=== PATIENT | male | born 1935 | race Caucasian/White ===

== ENCOUNTER 2017-06-11 11:46 | Emergency (ER) | payer OTHER, MEDICARE ==
[~2017-06-11] VITALS: Ht 185.4 cm; Wt 123.4 kg
[~2017-06-11 11:46] MED LIST: ATROVENT15 ML NASAL; BISOPROLOL FUMAR5 M1 PO; CIPRO500 MG PO; COUMADIN 5 MG TA5 M1 PO; HYDRALAZINE 2525 MG PO; KLOR-CON 1010 MEQ PO; LIPITOR10 MG PO; LOVASTAT40 PO; LOVASTATIN 20 M20 MG PO; MAPAP500 M1 PO; ROBITUSSIN DM PO; ZIAC 5-6.25 MG1 EACH PO
[2017-06-11] MEDS ORDERED: FLOMAX0.4 MG PO (12:18)
[2017-06-11] MEDS ORDERED: CIPRO250 M2 PO (12:18)
[2017-06-11 12:32] LABS: HEMATOCRIT 48.2 % (42.0-52.0); HEMOGLOBIN 16.1 gm/dL (14.0-18.0); MCH 31.1 pg (26.0-34.0); MCHC 33.4 g/dL (28.0-37.0); MCV 92.9 fL (80.0-100.0); PLATELET COUNT 146 thou/uL (150-400); RBC 5.19 mil/uL (4.50-6.00); RDW 13.6 % (10.5-14.5); WBC 13.7 thou/uL (4.0-11.0)
[2017-06-11 12:40] LABS: CALCIUM 8.6 mg/dL (8.5-10.1); CREATININE 1.2 mg/dL (0.7-1.3); MANUAL DIFF YES
[2017-06-11 12:46] LABS: ALBUMIN 3.3 g/dL (3.4-5.0); DIRECT BILIRUBIN 0.2 mg/dL (<0.1-0.3); TOTAL BILIRUBIN 1.4 mg/dL (<0.1-1.0); TOTAL PROTEIN 6.3 g/dL (6.4-8.2)
[2017-06-11 13:17] LABS: URINE BILIRUBIN NEGATIVE (Negative); URINE BLOOD 2+ (Negative); URINE COLOR YELLOW; URINE GLUCOSE-RANDOM* NEGATIVE (Negative); URINE KETONES NEGATIVE (Negative); URINE NITRITE NEGATIVE (Negative); URINE PROTEIN (DIPSTICK) NEGATIVE (Negative)
[2017-06-11 13:20] LABS: SQUAMOUS None Seen /LPF (0-3); URINE RBC 0-2 Rare /HPF (0-2)
[2017-06-11 13:21] LABS: BACTERIA 1-9 Few /HPF (None Seen); CASTS None Seen /LPF (None Seen); CRYSTALS None Seen /LPF (None Seen); URINE WBC 0-5 Rare /HPF (0-5)
[2017-06-11 13:48] LABS: ABSOLUTE NEUTROPHILS 11.4 thou/uL (1.4-8.2); TOTAL CELL COUNT 100
[2017-06-11 15:00] VITALS: BP 109/41
== END 2017-06-11 15:00 | disposition home or self-care (01) ==
LOC: ER 11:46
PROVIDERS: Nurse Practitioner
DX: N39.0 Urinary tract infection, site not specified (principal); Z87.442 Personal history of urinary calculi; Z86.718 Personal history of other venous thrombosis and embolism; Z90.49 Acquired absence of other specified parts of digestive tract; Z88.7 Allergy status to serum and vaccine; Z88.5 Allergy status to narcotic agent; Z87.891 Personal history of nicotine dependence

== ENCOUNTER 2018-10-15 22:09 | Inpatient (IN) | payer OTHER, MEDICARE ==
[~2018-10-15] VITALS: Ht 182.9 cm; Wt 118.1 kg
--- NOTE | ~2018-10-15 | D ---
[facility] [place] [address] DISCHARGE SUMMARY Name: ABIOLA MARIN Room #: 225-P [facility] IN M.R.#: [id number] Admission: 10/16/18 Attend Phys: Scarlet Beasley Discharge: 10/19/18 Date of : 35 Report #: [id number] THIS REPORT FOR: //name// CC: Benitez Pace DATE OF SERVICE: 10/19/2018 FINAL DIAGNOSES: 1. Urinary tract infection due to Pseudomonas. 2. Urinary retention. 3. Hypertension. 4. Osteoarthritis of the knees. 5. Debility. HOSPITAL COURSE: The patient was admitted with weakness and elevated white count and urinalysis consistent with infection. Empiric Rocephin was administered and clinically he improved. He was still very weak and requiring physical therapy. Other medications were continued and INR was monitored. A referral was made for rehabilitation. Culture grew Pseudomonas, which was fairly pansensitive. He had urinary retention as well and is requiring intermittent catheterization at times. Additional medication was added. PHYSICAL EXAMINATION: GENERAL: On the day of discharge, he is resting in bed. VITAL SIGNS: Temperature 36.6, pulse 58, respirations 16, blood pressure 119/63 and O2 sat 98% on room air. LUNGS: Clear. HEART: Regular. ABDOMEN: Soft, normoactive bowel sounds. EXTREMITIES: No edema. LABORATORY DATA: INR was 2.5. DISPOSITION: He is transferred to [facility] with regular diet and activity as tolerated. PT, OT. I will follow his stay there. Coumadin monitoring. Continue Cipro for the UTI and other home medications. He will see Dr. Costa, Neurology, as an outpatient. By: 0813 1854 Nadir Guzman MD /nt
[~2018-10-15 22:09] MED LIST changes: +CIPRO250 M2 PO; +FLOMAX0.4 MG PO
[2018-10-15 22:13] VITALS: BP 126/66
[2018-10-15 22:36] LABS: URINE BILIRUBIN NEGATIVE (Negative); URINE BLOOD 3+ (Negative); URINE CLARITY CLOUDY; URINE COLOR YELLOW; URINE GLUCOSE-RANDOM* NEGATIVE (Negative); URINE KETONES NEGATIVE (Negative); URINE PROTEIN (DIPSTICK) 2+ (Negative); URINE SPECIFIC GRAVITY >= 1.030 (1.005-1.035); URINE UROBILINOGEN 0.2 E.U./dl (0.2-1.0)
[2018-10-15 22:37] LABS: URINE LEUKOCYTES-REFLEX 2+ (Negative); URINE NITRITE-REFLEX POSITIVE (Negative)
[2018-10-15 22:42] LABS: BACTERIA-REFLEX >30 Many /HPF (None Seen); CASTS None Seen /LPF (None Seen); CRYSTALS None Seen /LPF (None Seen); MUCUS None Seen strn/LPF (None Seen); SQUAMOUS None Seen /LPF (0-3); TRANSITIONAL EPITHEL CELL 4-10 Moderate /LPF (None Seen); URINE RBC >20 Many /HPF (0-2); URINE WBC-REFLEX >25 Many /HPF (0-5)
[2018-10-16 00:03] LABS: ABSOLUTE NEUTROPHILS 14.3 thou/uL (1.4-8.2); BASOPHILS 0.1 % (0.0-2.0); EOSINOPHILS 0.4 % (0.0-3.0); HEMATOCRIT 49.2 % (42.0-52.0); HEMOGLOBIN 16.8 gm/dL (14.0-18.0); LYMPHOCYTES 5.4 % (24.0-44.0); MCH 32.1 pg (26.0-34.0); MCHC 34.1 g/dL (28.0-37.0); MCV 94.3 fL (80.0-100.0); MONOCYTES 7.9 % (1.0-8.0); PLATELET COUNT 164 thou/uL (150-400); POLYS 86.2 % (36.0-66.0); RBC 5.21 mil/uL (4.50-6.00); RDW 14.1 % (10.5-14.5); WBC 16.6 thou/uL (4.0-11.0)
[2018-10-16 00:13] LABS: ANION GAP 9 mmol/L (7-16); BUN 19 mg/dL (7-18); CALCIUM 8.4 mg/dL (8.5-10.1); CHLORIDE 101 mmol/L (98-107); CO2 26 mmol/L (21-32); CREATININE 1.2 mg/dL (0.7-1.3); GLUCOSE 156 mg/dL (74-106); POTASSIUM 4.2 mmol/L (3.5-5.1); SODIUM 136 mmol/L (136-145)
[2018-10-16 00:21] LABS: ALBUMIN 3.5 g/dL (3.4-5.0); SGOT 20 U/L (15-37); SGPT 20 U/L (30-65); TOTAL BILIRUBIN 1.2 mg/dL (<0.1-1.0); TOTAL PROTEIN 6.3 g/dL (6.4-8.2); TROPONIN-I <0.06 ng/mL (<0.06)
[2018-10-16 03:30] VITALS: BP 121/58
[2018-10-16 04:30] VITALS: BP 140/72
[2018-10-16 07:10] VITALS: BP 153/45
[2018-10-16 07:18] VITALS: BP 116/70
--- NOTE | 2018-10-16 07:50 | NUR ---
PATIENT ARRIVED FROM ED AT 0330 WITH A UTI AND CONFUSION. ASSESSMENTS CHARTED. PATIENT INCONTINENT OF BLADDER. URINATED TWICE DURING SHIFT. BURNING. PLAN OF CARE TO INCLUDE ANTIBIOTICS.
--- NOTE | 2018-10-16 08:45 | EKG ---
[address] [address] ELECTROCARDIOGRAM REPORT Name: MARINABIOLA Room #: 202-P ADM IN M.R.#: [id number] Admission: 10/16/18 Attend Phys: Scarlet Beasley Discharge: Date of : 35 Report #: [id number] THIS REPORT FOR: //name// [facility] ED Test Date: 2018-10-15 Test Time: 22:50:09 Pat Name: ABIOLA MARIN Department: Room: 202 Gender: M Acid Etch Operator: RICHY : 1935 Requested By: Roxanna Fong Order Number: [id number] MD: Maurice Suazo Measurements Intervals Sheldon Rate: 91 P: NE: QRS: -75 QRSD: 172 T: -5 QT: 402 QTc: 495 Interpretive Statements Atrial fibrillation Right bundle branch block Inferior infarct, old Compared to ECG 09/10/2016 07:16:49 Myocardial infarct finding now present Atrial premature complex(es) no longer present Electronically Signed On 10-16-2018 8:45:29 TRANSPORTATION [employer] by Maurice Suazo [email or web address] <ELECTRONICALLY SIGNED> By: Maurice Suazo MD 10/16/18 0845 Maurice Suazo MD /EPI
[2018-10-16 10:02] LABS: INR 1.5; PROTIME 15.1 Seconds (9.3-11.4)
--- NOTE | 2018-10-16 13:28 | NUR ---
met with patient, and dtr at bedside. Patient admits with UTI family reports at times he becomes forgetfull with UTI. Dtr reports it is hard on her father and last UTI was in summer at [facility] he went to rehab at [facility]. He is continuing to do outpatient therapy at [facility]. He has rec HH in past and family reports he did not like prefers out patient at [facility]. Therapy has been ordered. Patient uses a walker in home he says 50/50 of time. He has a transfer chair for in community, walker, wc, and rolator walker. Ramp to home. Resides with in home with all needs on one level. He has walk in shower with grab bars. [facility] following for dc planning.
[2018-10-16 16:24] VITALS: BP 100/46
--- NOTE | 2018-10-16 19:24 | NUR ---
PT A&OX4, TRANSFERS WITH [employer] [facility], HAS URGENCY STRESS INCONT., WEARS A BREIF, IV INTACT IN R WRIST. CALL LIGHT W/I REACH, PT ORIENTED TO ROOM.
--- NOTE | 2018-10-16 20:16 | NUR ---
PATIENT ALERT AND ORIENTED BUT SOMETIMES BECOMES AGITATED. PATIENT SPOUSE (DAWSON) INDICATES PATIENT NORMALLY GETS AGITATED. PATIENT HAS PAIN WITH URINATION AND SOMETIMES URINATES IN BED BECAUSE HE CAN NOT GET URINAL QUICK ENOUGH. PATIENT IS AWARE OF MEDICATIONS HE TAKES AND INTERVENTIONS NECESSARY FOR HIS CARE. HE REQUESTED HIS SCD'S BE PLACED ON HIS LOWER EXTREMITIES. PATIENT FAMILY AT BEDSIDE THIS AFTERNOON. PATIENT TRAN[facility]ED TO [facility] THIS EVENING AND FAMILY AWARE. WILL CONTINUE TO FOLLOW PATIENT.
--- NOTE | 2018-10-17 05:46 | NUR ---
PATIENT ALERT AND ORIENTED X4 WITH PERIODS OF CONFUSION. NEEDS HELP USING A URINAL. WEARS BRIEFS. STATES HE CANNOT STAND. ON RA. IV IN RW. DENIES PAIN. SLEPT OFF AND ON DURING NIGHT.
[2018-10-17 07:26] LABS: HEMOGLOBIN 15.5 gm/dL (14.0-18.0); MCH 31.3 pg (26.0-34.0); MCV 94.9 fL (80.0-100.0); RBC 4.95 mil/uL (4.50-6.00); RDW 13.8 % (10.5-14.5); WBC 9.5 thou/uL (4.0-11.0)
[2018-10-17 07:41] LABS: INR 1.5; PROTIME 16.1 Seconds (9.3-11.4)
[2018-10-17 07:47] LABS: CALCIUM 8.4 mg/dL (8.5-10.1); CREATININE 1.1 mg/dL (0.7-1.3); POTASSIUM 3.9 mmol/L (3.5-5.1)
[2018-10-17 08:51] VITALS: BP 137/82
--- NOTE | 2018-10-17 10:48 | H ---
[facility] [place] [address] HISTORY AND PHYSICAL Name: ABIOLA MARIN Room #: 225-P ADM IN M.R.#: [id number] Admission: 10/16/18 Attend Phys: Scarlet Beasley Discharge: Date of : 35 Report #: [id number] THIS REPORT FOR: //name// CC: Benitez Pace DATE OF SERVICE: 10/16/2018 CHIEF COMPLAINT: Weakness. HISTORY OF PRESENT ILLNESS: The patient is an 83-year-old gentleman came to the Emergency Room last night with general weakness. His stated that he was having difficulty voiding last night and began experiencing pain and burning with urination. He said he felt like it was not completely emptying his bladder. He also became very confused and weak. She said these are very similar symptoms to when he has been diagnosed and treated for urinary infections in the past requiring hospitalization. PAST MEDICAL HISTORY: Chronic DVT, atrial fibrillation, lumbar spinal stenosis with myelopathy. His general lower extremity weakness is almost wheelchair bound. PAST SURGICAL HISTORY: Unknown. FAMILY HISTORY: Noncontributory. SOCIAL HISTORY: Lives at home with his . No chronic alcohol or tobacco use. ALLERGIES: MORPHINE, TETANUS. MEDICATIONS: Flomax 0.8 mg, Mevacor 40 mg, Coumadin 5 mg, Ziac 5/6.25 mg daily. He apparently had finished a course of Cipro and then was on an oral antibiotic per his 's report. REVIEW OF SYSTEMS: Other than urinary burning. Denies headache, chest pain, shortness of breath, abdominal pain, dysuria, syncope or fall. PHYSICAL EXAMINATION: VITAL SIGNS: Temperature 37, pulse 50, respirations 18, blood pressure 116/70, O2 sat 98% on room air. GENERAL: He is awake and alert, in no distress. LUNGS: Clear. HEART: Regular. ABDOMEN: Obese, soft, normoactive bowel sounds. EXTREMITIES: No edema. NEUROLOGIC: Motor strength 3/5 throughout. [facility] [place] [address] HISTORY AND PHYSICAL Name: ABIOLA MARIN Room #: [address] [place] [address] IN ..#: [id number] Admission: 10/16/18 Attend Phys: Scarlet Beasley Discharge: Date of : 35 Report #: [id number] LABORATORY DATA: His white count was 16. INR is 1.5. Chemistry is unremarkable. Urinalysis positive blood, nitrite, leukocyte, red cells, white cells, bacteria, and cultures pending. ASSESSMENT: 1. Urinary tract infection. 2. Leukocytosis due to the above. 3. Chronic deep venous thrombosis. 4. Chronic anticoagulation. 5. Atrial fibrillation. PLAN: Continue IV antibiotics pending the culture and his other home medications including Coumadin, a onetime dose of Lovenox today for DVT prophylaxis and followup INR. A renal ultrasound and bladder scanning will be obtained to rule out retention. <ELECTRONICALLY SIGNED> By: Nadir Guzman MD 10/17/18 1048 [id number] Nadir Guzman MD /vitaliy
--- NOTE | 2018-10-17 15:06 | NUR ---
SW reviewed chart and spoke with nursing. Pt was transferred to [facility]. Awaiting input from therapy for recommendations for discharge. [facility]O is following to assist as needed with discharge planning.
--- NOTE | 2018-10-17 15:09 | NUR ---
ASSUMED CARE AT 0700, SHIFT ASSESSMENT DONE, MEDS GIVEN. WAS NOT ABLE TO URINATE THIS AM. WAS STRAIGT CATHETERIZIED, 300 ML OF URINE WAS RETRIVED. DR OJEDA AWARE, STARTED SOME MORE MEDICATIONS. ATE LUNCH. RESTING IN BED THIS AFTERNOON.
[2018-10-17 20:04] VITALS: BP 114/57
--- NOTE | 2018-10-18 06:08 | NUR ---
PATIENT ALERT AND ORIENTED X4. IV IN RFA. NEEDS HELP WITH URINAL BUT HAS TRIED TO USE ON OWN. INC AT TIMES. DENIES PAIN. SLEPT MOST OF NIGHT.
[2018-10-18 07:30] VITALS: BP 110/56
[2018-10-18 07:45] LABS: INR 1.8; PROTIME 18.7 Seconds (9.3-11.4)
[2018-10-18 07:48] LABS: CALCIUM 8.2 mg/dL (8.5-10.1); CREATININE 1.1 mg/dL (0.7-1.3); POTASSIUM 3.9 mmol/L (3.5-5.1)
--- NOTE | 2018-10-18 11:54 | NUR ---
SW reviewed chart and spoke with nursing and attending physician. Pt is progressing towards goals for discharge. Request for referral to be sent to [facility] for review. Pt will be ready for discharge tomorrow. Clinical info faxed to [facility] for review. Awaiting eval at this time. SANDRO is following to assist as needed with discharge planning.
--- NOTE | 2018-10-18 13:24 | NUR ---
PATIENT CARE WAS ASSUMED AT 0715.PATIENT IS ALERT AND ORIENTED X4 PATIENT HAS SOME FORGETFULNESS.PATIENT HAS NO COMPLAINS OF PAIN AT THIS TIME.IV IS INTACT AND SALINE LOCKED.PATIENT HASN'T BEEN WORKING WITH PT/OT TO GET UP.PATIENT WORKED WITH PT ONLY FOR THE FIRST TIME TO GET UP IN THE CHAIR AND USE THE BSC. PATIENT STATED THAT HE HAS BEEN TO THE HOSPITAL SEVERAL TIME FOR UTI, AND DOESN'T WANT TO BE MESSED WITH.PT EDUCATED PATIENT ON HOW IMPORTANT PT/OT IS FOR HIM, SO HE CAN BE APPROVED FOR REHAB.PT IS ABLE TO USE THE URINAL WITH SOME HELP.PT HAS BRIEF IN PLACE FOR SMALL INCONTINCE.CALL LIGHT,PHONE, AND PERSONAL BELONGINGS ARE WITHIN REACH.WILL CONTINUE TO MONITOR PATIENT.
--- NOTE | 2018-10-18 14:19 | NUR ---
DISCHARGE PLANNING. REFERRAL FAXED TO [facility] MECHANICAL SYSTEM TECHNICIAN FOR PATIENTS DISCHARGE PLACEMENT NEEDS. CALL PLACED TO [facility] TO NOTIFY. CALL RECEIVED FROM [facility] ADMISSIONS LIAISON. ACCEPTING OF PATIENT AT DISCHARGE. ONCE DISCHARGE ORDERS ARE OBTAINED PLEASE CONTACT JERMAN AT [phone] TO FACILITATE DISCHARGE AND TRANSPORTATION. PLEASE FAX ORDERS TO . UNIT CM/SW AWARE.
[2018-10-18 19:34] VITALS: BP 106/62
--- NOTE | 2018-10-19 05:32 | NUR ---
ASSUMED CARE OF PATIENT AT 1899. ASSESSMENT COMPLETED AT 2044 AND IS DOCUMENTED. PT ASSISTED WITH USE OF URINAL X6 THROUGHOUT THE NIGHT, UNABLE TO UTILIZE URINAL INDEPENDENTLY WITHOUT SPILLING. PT ABLE TO STAND USING WALKER AND MINIMAL ASSISTANCE. NPC NOTED. LUNG SOUNDS CTA. PT STATES HE HAS CONSTANT NUMBNESS IN LOWER 1/2 OF BLE WITH RIGHT>LEFT. PIV IN RIGHT HAND PATENT AND SALINE LOCKED. PT ABLE TO VERBALIZED NEEDS APPROPRIATELY. PT SLEPT INTERMITTENTLY THROUGH THE NIGHT. NO C/O PAIN THIS SHIFT. PT CURRENTLY RESTING IN BED IN NO ACUTE DISTRESS WITH CALL LIGHT IN REACH. BED LOCKED AND IN LOWEST POSITION. WCTM.
[2018-10-19 07:38] VITALS: BP 119/63
[2018-10-19] MEDS ORDERED: URECHOLINE 25 M25 M1 PO (08:08)
[2018-10-19 08:09] LABS: INR 2.5; PROTIME 25.8 Seconds (9.3-11.4)
[2018-10-19] MEDS ORDERED: FINASTERIDE5 MG PO (08:09)
[2018-10-19] MEDS ORDERED: CIPRO500 MG PO (08:09)
--- NOTE | 2018-10-19 13:58 | NUR ---
ASSUMED CARE OF PATIENT AT 0715, PATIENT ALERT AND ORIENTED X 4. PATIENT UP WITH ASSIST X 1, WITH WALKER. PATIENT DENIES PAIN THIS AM. PAIENT HAS RIGHT HAND IV, FLUSHED WITH NS AND REMAINS PATENT. PATIENT HAD 2 STOOLS PRIOR TO DISCHARGE. PATIENT WILL DISCHARGE TO [facility], REPORT GIVEN TO MARGO/RANI. ALL PERSONAL BELONGINGS AND ALL DISCHARGE PAPERWORK SENT WITH PATIENT. PRESENT ON DISCHARGE, [facility] PROVIDED TRANSPORT.
== END 2018-10-19 14:14 | DRG 689 ==
LOC: ER 22:09 → 2N 10-16 00:50 → EROBS 10-16 00:50 → 2N 10-16 03:30 → SICU 10-16 18:53
PROVIDERS: Internal Medicine Geriatric Medicine; Student in an Organized Health Care Education/Training Program; ADMIT Internal Medicine
DX: N39.0 Urinary tract infection, site not specified (principal); G92 Toxic encephalopathy; I82.509 Chronic embolism and thrombosis of unspecified deep veins of unspecified lower extremity; R65.10 Systemic inflammatory response syndrome (SIRS) of non-infectious origin without acute organ dysfunction; B96.5 Pseudomonas (aeruginosa) (mallei) (pseudomallei) as the cause of diseases classified elsewhere; I48.91 Unspecified atrial fibrillation; I10 Essential (primary) hypertension; M17.0 Bilateral primary osteoarthritis of knee; Z99.3 Dependence on wheelchair; Z88.6 Allergy status to analgesic agent; Z88.7 Allergy status to serum and vaccine; Z79.01 Long term (current) use of anticoagulants; Z87.440 Personal history of urinary (tract) infections; Z87.442 Personal history of urinary calculi; Z90.49 Acquired absence of other specified parts of digestive tract; Z79.899 Other long term (current) drug therapy
CPT/HCPCS: 15002

== ENCOUNTER 2019-05-27 14:05 | Inpatient (IN) | payer OTHER, MEDICARE ==
[~2019-05-27] VITALS: Ht 182.9 cm; Wt 125.2 kg
[2019-05-27 14:05] VITALS: BP 114/58
[~2019-05-27 14:05] MED LIST changes: +FINASTERIDE5 MG PO; +URECHOLINE 25 M25 M1 PO
[2019-05-27 14:30] LABS: URINE BILIRUBIN NEGATIVE (Negative); URINE BLOOD 2+ (Negative); URINE CLARITY CLOUDY; URINE COLOR STRAW; URINE GLUCOSE-RANDOM* NEGATIVE (Negative); URINE KETONES NEGATIVE (Negative); URINE LEUKOCYTES-REFLEX 3+ (Negative); URINE NITRITE-REFLEX POSITIVE (Negative); URINE PROTEIN (DIPSTICK) 1+ (Negative); URINE SPECIFIC GRAVITY 1.025 (1.005-1.035); URINE UROBILINOGEN 0.2 E.U./dl (0.2-1.0)
[2019-05-27 14:33] LABS: ABSOLUTE NEUTROPHILS 7.5 thou/uL (1.4-8.2); BASOPHILS 0.5 % (0.0-2.0); EOSINOPHILS 0.7 % (0.0-3.0); HEMATOCRIT 45.2 % (42.0-52.0); HEMOGLOBIN 15.4 gm/dL (14.0-18.0); LYMPHOCYTES 14.1 % (24.0-44.0); MCHC 34.1 g/dL (28.0-37.0); MONOCYTES 9.5 % (1.0-8.0); PLATELET COUNT 195 thou/uL (150-400); POLYS 75.2 % (36.0-66.0); RBC 4.81 mil/uL (4.50-6.00); RDW 13.8 % (10.5-14.5)
[2019-05-27 14:34] LABS: CASTS None Seen /LPF (None Seen); CRYSTALS None Seen /LPF (None Seen); SQUAMOUS None Seen /LPF (0-3); URINE RBC 3-10 Few /HPF (0-2); URINE WBC-REFLEX >25 Many /HPF (0-5)
[2019-05-27 14:39] LABS: ANION GAP 4 mmol/L (7-16); BUN 19 mg/dL (7-18); CALCIUM 8.7 mg/dL (8.5-10.1); CHLORIDE 102 mmol/L (98-107); CO2 30 mmol/L (21-32); CREATININE 1.4 mg/dL (0.7-1.3); GLUCOSE 203 mg/dL (74-106); POTASSIUM 3.9 mmol/L (3.5-5.1); SODIUM 136 mmol/L (136-145)
[2019-05-27 14:45] LABS: MAGNESIUM 1.6 mg/dL (1.8-2.4); TROPONIN-I <0.06 ng/mL (<0.06)
[2019-05-27] MEDS ORDERED: HIPREX1 GM PO (15:10)
[2019-05-27 16:13] VITALS: BP 94/55
[2019-05-27 16:24] VITALS: BP 105/51
[2019-05-27 18:14] VITALS: BP 146/68
--- NOTE | 2019-05-27 20:19 | NUR ---
Admitted on the floor at 1740, transferred to bed safely. A+O. On room air. Due medications given as prescribed, able to swallow meds w/o difficulty. On AO2, pt uses walker at home. Admission care rendered. Pt able to finish dinner, no nausea, no vomiting and no abdominal pain noted afterwards. Assisted in ADLs. Children came with patient from ED but left right away after pt has been transferred to room, pt refused to sign forms and said to have his sign on his behalf. Falls risk- falls bundle in place. With SL at L AC- patent. With knee brace noted. With bilateral leg swelling noted, not weeping, to keep elevated. Vital signs stable, no complains of pain, no chest pain or heaviness on the chest noted.
--- NOTE | 2019-05-28 00:40 | NUR ---
ASSUMED CARE OF PT AT 1900HRS. PT IS ALERT BUT ONLY ORIENTED TO SELF AND PLACE. FALL PRECAUTION IN PLACE. PT ASSISTED WITH URINAL USE. PT WAS COMFORTABLE AND SLEPT PART OF THE SHIFT. NO S/S OF ACUTE DISTRESS. WILL CONTINUE TO MONITOR.
[2019-05-28 03:59] VITALS: BP 114/46
[2019-05-28 06:04] LABS: HEMATOCRIT 42.4 % (42.0-52.0); HEMOGLOBIN 14.5 gm/dL (14.0-18.0); MCH 32.1 pg (26.0-34.0); MCHC 34.1 g/dL (28.0-37.0); MCV 94.2 fL (80.0-100.0); RBC 4.5 mil/uL (4.50-6.00); RDW 13.8 % (10.5-14.5); WBC 8.1 thou/uL (4.0-11.0)
[2019-05-28 06:07] LABS: INR 1.3; PROTIME 13.9 Seconds (9.3-11.4)
[2019-05-28 06:20] LABS: CALCIUM 8.3 mg/dL (8.5-10.1); CREATININE 1.2 mg/dL (0.7-1.3); POTASSIUM 3.8 mmol/L (3.5-5.1)
[2019-05-28 07:11] VITALS: BP 100/48
--- NOTE | 2019-05-28 07:48 | EKG ---
[address] [place] [address] ELECTROCARDIOGRAM REPORT Name: ABIOLA MARIN EDMARIANNE Room #: 452-P ADM IN M.R.#: [id number] Admission: 05/27/19 Attend Phys: Nadir Guzman MD Discharge: Date of : 35 Report #: [id number] THIS REPORT FOR: //name// [facility] ED Test Date: 2019-05-27 Test Time: 14:03:37 Pat Name: ABIOLA MARIN Department: Room: 452 Gender: M Soda Clerk: RODRICK : 1935 Requested By: Lamont Rogers Order Number: [id number] MD: Sandor Le Measurements Intervals Mittie Rate: 64 P: -30 PA: 65 QRS: -33 QRSD: 153 T: -28 QT: 391 QTc: 404 Interpretive Statements Incomplete tracing Atrial fibrillation Right bundle-branch block Compared to ECG 10/15/2018 22:50:09 No significant changes. Recommend tracing with all leads in place Electronically Signed On 05-28-2019 7:48:01 CDT by Sandor Le [email or web address] <ELECTRONICALLY SIGNED> By: Sandor Le MD, [facility] 05/28/19 0748 1403 1403 Sandor Le MD, [facility] /EPI
--- NOTE | 2019-05-28 09:08 | H ---
[facility] [place] [address] HISTORY AND PHYSICAL Name: ABIOLA MARIN Room #: 452-P ADM IN M.R.#: [id number] Admission: 05/27/19 Attend Phys: Nadir Guzman MD Discharge: Date of : 35 Report #: [id number] THIS REPORT FOR: //name// CC: Benitez Guzman DATE OF SERVICE: 05/27/2019 CHIEF COMPLAINT: Weakness. HISTORY OF PRESENT ILLNESS: The patient is an 83-year-old gentleman who came to the Emergency Room today with his family with complaints of weakness. His said he has become confused overnight and today and he has had some difficulty speaking. She told the ER staff that in the past, the signs and symptoms have represented urinary tract infections. He has had a series of repeated infections with hospitalizations over the last year. He follows with urologist as an outpatient. He has had trouble with retention in the past as well. PAST MEDICAL HISTORY: Kidney stones, DVT, IVC filter with remote history of clots in the past. He is on chronic anticoagulation with Coumadin. Hypertension, chronic low back pain with lumbar stenosis. PAST SURGICAL HISTORY: He has had a cervical diskectomy, appendectomy. FAMILY HISTORY: Noncontributory. SOCIAL HISTORY: He lives with his and family. No chronic alcohol or tobacco use. ALLERGIES: TETANUS and MORPHINE. MEDICATIONS: Hiprex, lovastatin, warfarin, Ziac, finasteride, bethanechol. REVIEW OF SYSTEMS: He denies nausea, vomiting, fever, chills, productive cough, shortness of breath, chest pain, dysuria, syncope. OBJECTIVE: VITAL SIGNS: Temperature 36.8, pulse 55, respirations 17, blood pressure 114/58, O2 sat 92% on room air. GENERAL: He is awake and alert, in no distress. HEAD AND NECK: Unremarkable. LUNGS: Clear. HEART: Regular. ABDOMEN: Obese, soft, normoactive bowel sounds. No rebound or guarding. No palpable tenderness over the lower posterior ribs. EXTREMITIES: No cyanosis, clubbing or edema. [facility] [address] [place] [address] HISTORY AND PHYSICAL Name: ABIOLA MARIN Room #: 452-P [facility] IN M.R.#: [id number] Admission: 05/27/19 Attend Phys: Nadir Guzman MD Discharge: Date of : 35 Report #: [id number] NEUROLOGIC: He is alert. He recognizes me and his family. He is slow to respond to questions, but answers appropriately. Global strength 3/5. LABORATORY DATA: Urinalysis had protein, blood, nitrite, leukocyte, red cells, many bacteria. White count was 10. Creatinine 1.4, magnesium 1.6. ASSESSMENT: 1. Acute urinary tract infection. 2. Toxic encephalopathy due to infection from above. 3. Hypertension. 4. Hypomagnesemia. 5. Chronic anticoagulation with Coumadin. PLAN: He will receive IV antibiotics and he was fairly broad-spectrum with Zosyn at this time because he has had multiple organisms in the past. Otherwise, home medications to continue. Bladder scan for postvoid residuals. He had an ultrasound of his kidneys about a year ago that was unremarkable and his reports that has really been no definitive diagnosis or anatomic pathology to explain his repeat infections, but this may be related to retention. <ELECTRONICALLY SIGNED> By: Nadir Guzman MD 05/28/19 0908 1658 1719 Nadir Guzman MD /nt
[2019-05-28 13:57] VITALS: BP 107/45
--- NOTE | 2019-05-28 14:09 | NUR ---
PT ALERT AND ORIENTED TIMES FOUR WITH VERY BLUNTED AFFECT. VSS, PT DENIES PAIN/SOA. PT REFUSED PHYSICAL AND OCCUPATIONAL THERAPY EVAL TODAY. PT TOLERATES MEDS AND MEALS. FAMILY AT BEDSIDE THIS AFTERNOON. WILL CONTINUE TO MONITOR.
--- NOTE | 2019-05-28 14:09 | NUR ---
OT RECEIVED ORDERS TO EVAL AND TREAT. EVAL ATTEMPTED, PT REFUSED, DEMONSTRATING YELLING AND UNABLE TO LISTEN TO OT AT THIS TIME. PATIENT'S FAMILY MEMBERS WERE PRESENT IN ROOM AND SAID HE WOULD NOT PARTICIPATE. WILL TRY AGAIN TOMORROW.
--- NOTE | 2019-05-28 15:45 | NUR ---
PT ADMITTED RLEATED TO UTI, DELIRIUM, WEAKNESS. CM REVIEWED CHART AND SPOKE WITH CARE TEAM. CM MET WITH PT AT BEDSIDE THIS DAY. PT IS A&O X4. CM ROLE INTRODCUED. PT INDICATED HE LIVES IN A HOUSE WITH HIS SPOUSE WITH A PLATRORM LIFT TO ENTER AND NO STEPS PT USES INSIDE. PT INDICATED HE HAS A CANE, WALKERS, WHEELCHAIR, TRANSPORT CHAIR, GRAB BARS AND WALK IN SHOWER FOR USE AT HOME. PT INDICATED HE HAD HH IN THE PAST BUT CAN'T RECALL PROVIDER, HE'S ALSO BEEN TO [facility] AND DONE OP THERAPY THERE. PT INDICATED HE PLANS TO RETURN HOME ONCE MEDICALLY STABLE. CM MET WITH PT'S DTR OLAYINKA THIS AFTERNOON AND SHE INDICATED THAT PT'S SPOUSE HAS BEEN SOLE CAREGIVER AND THAT SHE ISN'T ABLE TO CARE FOR PT ANY LONGER. SHE SPOKE ABOUTNEXT STEPS AND INDICATED INTEREST IN PT GOING SKILLED AND THEN TRANSITIONING TO AL OR LTC WHICHEVER IS APPROPRIATE. CM PROVIDED HER WITH A SNF LIST TO REVIEW. CM TO FOLLOW INDICATED WITH DC PLANNING.
[2019-05-28 20:05] VITALS: BP 138/66
--- NOTE | 2019-05-29 03:16 | NUR ---
TOWARDS POC Assumed care at 1845. Pt resting in bed. AOX3/4. VSS. Denies pain. Lungs clear. Pt has bilateral feet edema +2. Bedrest. Using urinal. No identified needs at the moment. Call light within reach. Will continue to monitor.
[2019-05-29 05:26] LABS: INR 1.7; PROTIME 17.2 Seconds (9.3-11.4)
[2019-05-29 07:15] VITALS: BP 121/72
--- NOTE | 2019-05-29 13:46 | NUR ---
DISCHARGE PLANNING. POST ACUTE RECOMMENDED AT DISCHARGE. PATIENT WILL NEED DETENTION PLACEMENT AND THEN WILL NEED TRANSITIONING TO STUDENT WORKER CARE OR ASSISTED LIVING. REFERRAL FAXED TO [facility] FOR DISCHARGE PLACEMENT NEEDS. CALL PLACED TO [facility] TO NOTIFY. [facility] TO REVIEW PATIENT REFERRAL AND NOTIFY. FOLLOWING.
--- NOTE | 2019-05-29 14:00 | NUR ---
CM SPOKE WITH PT'S DTR OLAYINKA AND SHE ASKED THAT REFERRAL BE SENT TO [facility] FOR [facility]VIEW FOR SKILLED THAN TRANSITION TO LTC OR AL. CM TO FOLLOW INDICATED WITH DC PLANNING.
[2019-05-29 14:52] VITALS: BP 133/78
--- NOTE | 2019-05-29 17:12 | NUR ---
PT ALERT AND ORIENTED TIMES FOUR. VSS, PT DENIES PAIN/SOA. PT UP TO CHAIR FOR SOME PART OF THE SHIFT, ALSO WORKED WELL WITH PT/OT. PT AT BEDSIDE. PT SLOWLY PROGRESSING TOWRADS POC GOALS.
[2019-05-29 21:24] VITALS: BP 116/68
--- NOTE | 2019-05-30 02:49 | NUR ---
ASSUMED CARE OF PT AT 1900HRS. PT IS AOX3 AND FALL PRECAUTION IN PLACE. PT SELF TURNS. ABX TREATMENT CONTINUED. PT WAS INCT THIS SHIFT. VSS AND NO S/S OF ACUTE DISTRESS. NO PAIN REPORTED. WILL CONTINUE TO MONITOR.
[2019-05-30 03:41] LABS: INR 2.5; PROTIME 25.7 Seconds (9.3-11.4)
[2019-05-30 07:44] VITALS: BP 125/51
[2019-05-30] MEDS ORDERED: CIPRO500 MG PO (11:06)
[2019-05-30] MEDS ORDERED: ACETAMINOPHEN325 M1 PO (11:06)
--- NOTE | 2019-05-30 12:02 | NUR ---
PT A&OX4, VSS, DENIES PAIN AND SOA. PATIENT UP TO CHAIR. FAMILY HAS BEEN AT BEDSIDE. PATIENT AWAITING DISCHARGE TO REHAB FACILITY. WILL CONTINUE TO MONITOR.
--- NOTE | 2019-05-30 14:16 | NUR ---
CARE TEAM INDICATED THAT PT IS MEDICALLY STABLE TO DC TO [facility] THIS DAY. CHART COPY ORDERED. ORDERS FAXED. WHEELCHAIR VAN TRANSPORT ARRANGED FOR 1445.PT AND FAMILY ARE AWARE AND AGREEABLE. NO OTHER CM INTERVENTION INDICATED. CASE CLOSED.
== END 2019-05-30 15:30 | DRG 689 ==
LOC: ER 14:05 → 4W 15:19 → EROBS 15:19 → 4W 16:24
PROVIDERS: Emergency Medicine; ADMIT Internal Medicine Geriatric Medicine
DX: N12 Tubulo-interstitial nephritis, not specified as acute or chronic (principal); G92 Toxic encephalopathy; G89.29 Other chronic pain; M54.5 Low back pain; E83.42 Hypomagnesemia; I10 Essential (primary) hypertension; Z87.442 Personal history of urinary calculi; Z86.718 Personal history of other venous thrombosis and embolism; Z90.49 Acquired absence of other specified parts of digestive tract; Z88.6 Allergy status to analgesic agent; Z87.891 Personal history of nicotine dependence; Z95.828 Presence of other vascular implants and grafts; Z79.01 Long term (current) use of anticoagulants; Z79.899 Other long term (current) drug therapy
CPT/HCPCS: 10040

== ENCOUNTER 2019-09-15 16:55 | Inpatient (IN) | payer OTHER, MEDICARE ==
[~2019-09-15] VITALS: Ht 185.4 cm; Wt 122.5 kg
[~2019-09-15 16:55] MED LIST changes: +ACETAMINOPHEN325 M1 PO; +HIPREX1 GM PO
[2019-09-15 18:52] LABS: CALCIUM 9.3 mg/dL (8.5-10.1); CREATININE 1.2 mg/dL (0.7-1.3)
[2019-09-15 18:58] LABS: ALBUMIN 3.2 g/dL (3.4-5.0); TOTAL BILIRUBIN 0.5 mg/dL (<0.1-1.0); TOTAL PROTEIN 6.4 g/dL (6.4-8.2)
[2019-09-15 19:04] LABS: INR 2.3; PROTIME 24.1 Seconds (9.3-11.4)
--- NOTE | 2019-09-15 20:26 | NUR ---
PT CARE ASSUMED AT [address]MIT [address] DR. BROTHERS. PT. IS UP WITH 2 AND ASSIST. PT. STILL NEEDS IV AND HAS REQUESTED LIDOCAIN FOR INSERTION. PT. IS RESTING AND IN PAIN. PT HAS A MARIO THAT WAS PLACED 30 DAYS AGO, POSSIBLE CHANGE OUT FOR NEW MARIO. ADMISSION DONE. MEDS STILL NEED RECONCILIATION. FAMILY IS INVOLVED IN CARE. THREE SONS AND WERE ALL PRESENT AT ADMISSION. JUST LEFT.
[2019-09-15] MEDS ORDERED: ZOLOFT 50 MG TA50 M1 PO (21:24)
[2019-09-15] MEDS ORDERED: AUGMENTIN 875-1 EACH PO (21:25)
[2019-09-16 03:27] VITALS: BP 108/60
--- NOTE | 2019-09-16 05:48 | NUR ---
PT ALERT AND ORIENTED TO PERSON, PLACE, TIME, AND SITUATION WITH INTERMITTENT CONFUSION. PT REPORTS PAIN 5/10 IN BLE. PT PRESENTS IN SUPINE POSITION WITH HEAD OF BED ELEVATED. PT REPORTS SOA, PT RELUCTANT TO APPLY OXYGEN HE REPORTS NOT REQUIRING OXYGEN IN THE PAST. PT EDUCATED ON OXYGEN, VERBALIZED UNDERSTANDING. PT ON 2L O2 VIA NC. PT NONAMBULATORY, ABLE TO REPOSITION HISSELF USING BED RAILS. CATHETER USE CONTINUES TO BE INDICATED PT RETAINING URINE. SKIN TEAR NOTED TO PENIS WITH SCANT DRAINAGE, PT DOES NOT REPORT PAIN WHEN CLEANING HEBERT AREA. PT ENCOURAGED TO NOTIFY STAFF FOR ALL NEEDS. CALL LIGHT WITHIN REACH, BED IN LOWEST POSITION, BED ALARM ON. WILL CONTINUE TO MONITOR.
[2019-09-16 07:53] VITALS: BP 118/55
--- NOTE | 2019-09-16 08:39 | EKG ---
[address] [address] ELECTROCARDIOGRAM REPORT Name: ABIOLA MARIN Room #: 437-P ADM IN M.R.#: [id number] Admission: 09/15/19 Attend Phys: Scarlet Beasley Discharge: Date of : 35 Report #: [id number] THIS REPORT FOR: //name// [facility] Test Date: 2019-09-15 Test Time: 19:47:53 Pat Name: ABIOLA MARIN Department: Room: 437 P Gender: M Brick Setter: Benita MANNING : 1935 Requested By: Benitez Pace Order Number: [id number] MD: Sandor Le Measurements Intervals Mobile Rate: 93 P: FL: QRS: -67 QRSD: 167 T: 18 QT: 430 QTc: 535 Interpretive Statements Atrial flutter RBBB and LAFB Compared to ECG 05/27/2019 14:03:37 No significant change was found Electronically Signed On 09-16-2019 8:38:51 GEAR HOBBER OPERATOR by Sandor Le [email or web address] <ELECTRONICALLY SIGNED> By: Sandor Le MD, [facility] 09/16/19 0838 46 46 Sandor Le MD, [facility] /EPI
[2019-09-16 12:34] LABS: ABSOLUTE NEUTROPHILS 6.3 thou/uL (1.4-8.2); BASOPHILS 0.8 % (0.0-2.0); EOSINOPHILS 3.6 % (0.0-3.0); HEMATOCRIT 48.8 % (42.0-52.0); HEMOGLOBIN 15.7 gm/dL (14.0-18.0); LYMPHOCYTES 10.9 % (24.0-44.0); MCH 29.7 pg (26.0-34.0); MCHC 32.2 g/dL (28.0-37.0); MCV 92.2 fL (80.0-100.0); MONOCYTES 7.9 % (1.0-8.0); PLATELET COUNT 178 thou/uL (150-400); POLYS 76.8 % (36.0-66.0); WBC 8.2 thou/uL (4.0-11.0)
[2019-09-16 15:27] VITALS: BP 118/55
--- NOTE | 2019-09-16 15:29 | NUR ---
Case opened to follow for dc planning. Pt known to from recent admission in May 2019 and dc to snf at [facility]. [facility] visited with the pt and his at bedside. They report that he was skilled for a couple of weeks and then went home with hh. He ended up going to [facility] about 3 weeks ago and was dc'd home a week ago with [facility]. He indicates that he is receptive to resuming the HH services with [facility] at al. He does not want to go to snf or rehab at al. He is frustrated and tried of therapy. Both acknowledge he is very weak and has not been able to get out of bed without lots of assistance. They have 5 children locally and some of them have been taking shifts coming over in the evenings with dinner and helping out until he is in bed for the night. They have not discussed snf placement as a serious option and he does not want to consider this. He prefers dcing home and having family try to coordinate some private duty support along side the HH services. They are aware that [facility] has private duty as well as and are interested in getting more information. [facility] HH notified of the pt's admission and of desire for private duty info. The pt has a w/c, transport chair, stair glide for basement garage up a few steps to the kitchen, BSC, lift chair and shower bench. He does not want a hospital bed at this time. Pt's reports she is a little overwhelmed with care at home. Support provided. [facility] encouraged them to talk with their children and discuss options for private duty or placement given the pt's increased care needs over the past 4 months.
[2019-09-16 17:33] VITALS: BP 128/53
--- NOTE | 2019-09-16 18:52 | NUR ---
PT CARE ASSUMED 0700. A&Ox4. CALL LIGHT WITHIN REACH AND BED LOCKED. BED EXSTENDER IN PLACE. PT. SLEPT MOST OF THE DAY. PT. HAD A PORTABLE CHEST X-RAY TODAY WITH NORMAL RESULTS. PT. HAD URINE CULTURE TODAY WITH PENDING RESULTS. PATIENT IS NPO AFTER MIDNIGHT FOR ABDOMINAL ULTRASOUND TOMORROW. IV IS IN PLACE SALINE LOCKED.
[2019-09-16 19:29] VITALS: BP 145/72
[2019-09-17 03:05] VITALS: BP 115/61
--- NOTE | 2019-09-17 04:29 | NUR ---
Pt A/OX4,VSS.C/o pain to BLE and requested for sleepaid, Dr. Pace notified and meds ordered and administered with relief noted. Pt resting without distress noted. Irwin patent draining yellow urine. Pt has been NPO since midnight for US. Calls approp for help.
[2019-09-17 08:46] VITALS: BP 119/63
--- NOTE | 2019-09-17 13:07 | NUR ---
PT. CARE ASSUMED 0700. PT A&Ox4. PT ATE 25% OF BREAKFAST, AND ALL OF HIS LUNCH. PT. HAD AN ABDOMINAL US THIS MORNING BEDSIDE. I SAT WITH PT. AND TALKED WITH HIM ABOUT WHAT THE PLANS ARE FOR TODAY AND WHAT THE CARE PLAN CURRENTLY. CALL LIGHT IN PLACE. BED LOCKED. PT SAT AT THE EDGE OF THE BED FOR LUNCH. PT. URINARY CATHETER IN PLACE, STATLOCKED. PT. WORKED WITH OT AND REFUSED PT. PT. HAS CHRONIC PAIN IN BILATERAL EXTREMITIES CHRONIC BUT DENIED PAIN MEDICATION. IV IN PLACE, FLUSHES AND SALINE LOCKED.
--- NOTE | 2019-09-17 16:10 | NUR ---
CASE DISCUSSED WITH DR THANG BROTHERS AND HE SAYS HE DOES NOT THINK PT IS GOING TO BE WILLING TO GO ANYWHERE BUT HOME WITH [facility] THIS TIME. PT ALSO HAS INFO ON [facility]. [phone]= AND FAX [phone].
--- NOTE | 2019-09-17 17:27 | NUR ---
I have reviewed the documentation by CRISTIN PEACOCK from 09/17/19 to 09/17/19 and I concur with it. ALAN WILKINSON
[2019-09-17 17:45] VITALS: BP 116/44
[2019-09-17 19:32] VITALS: BP 110/55
[2019-09-18 04:39] VITALS: BP 111/62
[2019-09-18 05:04] LABS: ABSOLUTE NEUTROPHILS 5.7 thou/uL (1.4-8.2); BASOPHILS 0.5 % (0.0-2.0); CALCIUM 8.4 mg/dL (8.5-10.1); CREATININE 0.9 mg/dL (0.7-1.3); EOSINOPHILS 3.8 % (0.0-3.0); HEMATOCRIT 46.7 % (42.0-52.0); HEMOGLOBIN 15.2 gm/dL (14.0-18.0); LYMPHOCYTES 14.4 % (24.0-44.0); MCH 30.1 pg (26.0-34.0); MCHC 32.6 g/dL (28.0-37.0); MCV 92.4 fL (80.0-100.0); MONOCYTES 9.7 % (1.0-8.0); PLATELET COUNT 197 thou/uL (150-400); POLYS 71.6 % (36.0-66.0); POTASSIUM 3.8 mmol/L (3.5-5.1); RBC 5.05 mil/uL (4.50-6.00); RDW 13.8 % (10.5-14.5); WBC 7.9 thou/uL (4.0-11.0)
[2019-09-18 05:05] LABS: INR 2.6; PROTIME 27.1 Seconds (9.3-11.4)
--- NOTE | 2019-09-18 06:19 | NUR ---
ASSUMED PT CARE 09/17 @1900. PT HAS VERY FLAT AFFECT, JUST WANTS TO SLEEP, WEAK & TIRED. REFUSING PATIENT CARES, WANTS BETHANECHOL D/C. STATES JUST HAS SOME PAIN IN LEGS, NO PAIN MEDS GIVEN. CATHETER PATENT. NO OTHER SIGNIFICANT CHANGES.
[2019-09-18 07:54] VITALS: BP 134/67
--- NOTE | 2019-09-18 15:36 | NUR ---
Assumed care of pt at 0700. Pt 1&ox4. Flat affect. Feeling weak and tired. Prn pain medication administered for BLE pain. Irwin catheter in place. Family at bedside. Calls appropriately. Fall precautions in place. Will continue to monitor.
[2019-09-18 16:58] VITALS: BP 96/38
[2019-09-18 19:12] VITALS: BP 105/40
[2019-09-19 03:58] VITALS: BP 125/55
--- NOTE | 2019-09-19 04:24 | NUR ---
PT ALERT AND ORIENTED TO PERSON, PLACE, AND SITUATION. PT OBSERVED SHORT OF AIR HE IS GASPING FOR AIR WHILE TALKING, SKIN TURNING RED. ENCOURAGED PT TO APPLY OXYGEN. PT REQUESTS TO HAVE OXYGEN ONLY AT BEDTIME. OFFERED TO ELEVATE HOB, PT REFUSED HE REPORTS HE IS COMFORTABLE IN THE LEFT SIDE LYING POSITION. PT REFUSES REPOSITION CHANGES. PT REPORTS PAIN 5/10 IN RIGHT LEG. PRN TYLENOL GIVEN. AT TIME OF REASSESSMENT, PT SLEEPING. PT SLEEPING THROUGHOUT SHIFT, SLEEP NOT INTERRUPTED. ENCOURAGED TO NOTIFY STAFF FOR ALL CONCERNS. BED IN LOWEST POSITION, CALL LIGHT WITHIN REACH, BED ALARMS ON. WILL CONTINUE TO MONITOR.
[2019-09-19 07:30] VITALS: BP 135/70
--- NOTE | 2019-09-19 09:53 | NUR ---
Assumed care of pt at 0700. Pt a&ox4. Needs encouragement for activity. Up in the chair with physical therapy. After approx 20 minutes in chair, requests to go back to bed. Irwin catheter in place. On 2L O2. Fall precautions in place. Will continue to monitor.
[2019-09-19 16:17] VITALS: BP 120/48
--- NOTE | 2019-09-19 16:32 | NUR ---
Assume patient care at 1630.
[2019-09-19 19:55] VITALS: BP 126/46
--- NOTE | 2019-09-20 04:46 | NUR ---
PATIENT ALERT AND ORIENTED X4. MARIO TO D/D. DENIES PAIN. TURNS FREQUENTLY. PATIENT REQUESTED 02NC BE PLACED [facility] HIS 02 SAT WAS 94% - THIS WAS DONE. RESTING QUIELTY AT TIME OF NOTE. WILL MONITOR.
[2019-09-20 08:08] VITALS: BP 123/59
[2019-09-20 10:10] VITALS: BP 123/59
--- NOTE | 2019-09-20 10:29 | NUR ---
PT. CARE ASSUMED 0700. A&Ox4. PT VERY WEAK AND REFUSING PT. PT. DID SIT AT THE EDGE OF THE BED FOR BREAKFAST. VITALS WITHIN NORMAL RANGE WITH THE EXCEPTION OF A LOWER O0 OF 95%. PT. BED LOW, LOCKED, AND BED ALARM ON. R. FA IV SALINE LOCKED, FLUSHES AND IS PATENT WITH NO REDNESS OR TENDERNESS. PT. IS AWAITING A CT OF THE CHEST WITH CONTRAST AND PE PROTOCOL.
[2019-09-20 11:45] LABS: INR 2.9; PROTIME 30.4 Seconds (9.3-11.4)
[2019-09-20 11:51] LABS: ANION GAP 8 mmol/L (7-16); BUN 17 mg/dL (7-18); CHLORIDE 104 mmol/L (98-107); CO2 27 mmol/L (21-32); CREATININE 1.1 mg/dL (0.7-1.3); GLUCOSE 162 mg/dL (74-106); POTASSIUM 4.3 mmol/L (3.5-5.1); SODIUM 139 mmol/L (136-145); TROPONIN-I <0.06 ng/mL (<0.06)
[2019-09-20 16:28] VITALS: BP 123/59
[2019-09-20 21:00] VITALS: BP 128/59
--- NOTE | 2019-09-20 23:14 | NUR ---
PT WAS OBSERVED LYING IN BED AT THE START OF SHIFT.PT DENIED PAIN/N/V SO FAR.PT HAS MARIO TO DD,LIGHT YELLOW URINE NOTED IN THE BAG.PT STILL WEAK ABLE TO MOVE SELF IN BED.PT RESTING ON HIS BED AT THIS TIME.FALL PRECAUTIONS IN PLACE,CALL LIGHT WITHIN REACH.
[2019-09-21 05:44] VITALS: BP 126/61
[2019-09-21 07:04] VITALS: BP 121/42
[2019-09-21 16:37] VITALS: BP 130/57
--- NOTE | 2019-09-21 18:25 | NUR ---
PT ASSESSED THIS AM. VERY WEAK AND NEEDS MAX ASSIST TO STAND AND TRANSFER. SAT UP IN THE RECLINER MOST OF SHIFT. EATING AND DRINKING WELL. URINE W/ SEDIMENT AND ODOROUS. SPEAKS W/ BREATHINESS BUT AND DTR STATES THIS IS HIS BASELINE.
[2019-09-21 18:59] VITALS: BP 117/51
--- NOTE | 2019-09-22 04:37 | NUR ---
PATIENT ALERT AND ORIENTED X4. NOT OOB DURING THE NIGHT. COOPERATIVE WITH CARE. IV ABX INFUSED W/O COMPLICATION. C/O HEADACHE AT BEGINNING AND WAS MEDICATED WITH GOOD RESULTS. REQUESTED 02NC AND PLACED AT 0430 ON 2L - NO SOA NOTED. MARIO WITH YELLOW URINE. WILL MONITOR.
[2019-09-22 08:54] VITALS: BP 131/110
--- NOTE | 2019-09-22 09:36 | NUR ---
Nutrition: Follow up for oral intake, nutrition hx. Pt not very conversant upon visit at breakfast. He denies any nutrition concerns or further nutrition needs. On a regular diet with a meal average of 61% per the last 3 days (09/18 - 09/20, none recorded from 09/21). 98% supplement average, with average consumption of 2-3/day which would add 700-1050 extra kcals/day and 40-60 g extra protein/day. Last week RD added Ensure Enlive to daily lunch, but pt may be receiving more often by staff. He would like to continue Ensure supplement with midday meal. Reports no desire for oatmeal/coffee at breakfast. RD thus encouraged eggs, milk, or meat for protein source at AM meal. Given nearly 2/3 meal average with consistent supplement use, change to low nutrition risk.
--- NOTE | 2019-09-22 14:21 | NUR ---
Following for d/c planning needs. Pt and spouse adamantly refuse SNF or rehab on d/c from hospital. They will only consider pt going home with home health. Pt was on service with [facility] and both pt and spouse want to use them again. Will fax orders to [facility] on d/c from hospital.
--- NOTE | 2019-09-22 16:48 | NUR ---
ASSUMED CARE OF THE PT AT 0700. PT REFUSES SCDS. REFUSES TO GET UP AND EXPRESSES THAT THERE HAS TO BE "2-3 PEOPLE" GETTING HIM UP AT ALL TIMES. BP IN THE AM WAS 131/110, PT C/O R THIGH PAIN, PAIN MEDICATION GIVEN, REASSESED BP MANUALLY AND BP WAS 127/72. PT USES O2 WHEN IT IS NECESSARY. REFUSED PT TODAY. LAST BM YESTERDAY. FALL PRECAUTIONS ARE IN PLACE. LUNGS ARE CLEAR. SKIN WAS DIAPHORETIC IN THE AM AND IS NORMAL NOW. PULSES ARE NORMAL. BED IS IN THE LOWEST POSITION AND CALL LIGHT IS WITHIN REACH. WILL CONTINUE TO MONITOR THE PT
--- NOTE | 2019-09-22 19:37 | H ---
[facility] [place] [address] HISTORY AND PHYSICAL Name: ABIOLA MARIN Room #: 437-P ADM IN M.R.#: [id number] Admission: 09/15/19 Attend Phys: Scarlet Beasley Discharge: Date of : 35 Report #: [id number] THIS REPORT FOR: //name// CC: Benitez Pace DATE OF SERVICE: 09/15/2019 CHIEF COMPLAINT: This is a patient well-known to my service with extreme weakness. 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 The patient failed recent rehabilitation services and comes in the office yesterday and he has just really fatigued and appeared short of breath. He was not confused. PAST MEDICAL HISTORY: Noteworthy for the IVC filter. He has had been on Coumadin. He has hypertension, chronic low back pain, and lumbar spinal stenosis. He also has kidney stones, recently had a Irwin catheter placed because of neurogenic bladder findings. He has had a previous cervical diskectomy and appendectomy. MEDICATIONS: List includes Coumadin, finasteride, and bethanechol. FAMILY HISTORY: Negative. ALLERGIES: He is sensitive to MORPHINE AND TETANUS TOXOID. REVIEW OF SYSTEMS: No specific cardiopulmonary or GI complaints at this time, just overwhelming fatigability. PHYSICAL EXAMINATION: GENERAL: Shows him to be awake, alert, and oriented. He is in no distress. VITAL SIGNS: Stable. Nurse reports some mild elevation of temperature at 99. HEENT: Showed seborrheic dermatitis of the face. CHEST: Clear. LUNGS: Diminished with occasional rhonchi. CARDIOVASCULAR: Shows a regular rate and rhythm. ABDOMEN: Soft and nontender. EXTREMITIES: No cyanosis, clubbing, or edema. NEUROLOGIC: Showed the lower extremity weakness. LABORATORY DATA: Laboratory parameters are not that helpful. Other than an elevated alkaline phosphatase. [address] [address] HISTORY AND PHYSICAL Name: ABIOLA MARIN Room #: [facility] IN M.R.#: [id number] Admission: 09/15/19 Attend Phys: Scarlet Beasley Discharge: Date of : 35 Report #: [id number] ASSESSMENT: This is an 84-year-old male with extreme weakness, unable to be managed at home with caregiver breakdown and needs inpatient management to try to figure out what the cause of the weakness, which is a totally clear at this point in his evaluation and second to decide about future living situation since he really is too much to be managed at home. <ELECTRONICALLY SIGNED> By: Benitez Pace MD 09/22/19 [id number] Benitez Pace MD /PMT
[2019-09-22 20:10] VITALS: BP 113/63
--- NOTE | 2019-09-23 03:50 | NUR ---
ASSUMED CARE OF PT @19OO PT ASSESSED AT START OF SHIFT A&OX4 DENIES PAIN. FOLLEY CATH INTACT, VSS BP 113/63 AND PT ON ROOM AIR. PT REPOSITIONS SELF IN BED. CALL LIGHT WITHIN REACH AND FALL PREC MAINTAINED. WILL CONT WITH POC TILL EOS.
[2019-09-23 04:23] VITALS: BP 108/51
[2019-09-23 07:53] VITALS: BP 117/59
--- NOTE | 2019-09-23 10:56 | NUR ---
PT. A&Ox4. pt care assumed at 0700. PT. MARIO IS STATLOCKED. MARIO IS IN PLACE DUE TO RETENTION. BEDSIDE BATH GIVEN. AWAITING CT OF THE LEFT SPINE RESULTS. XRAY OF THE KNEE AWAITING. PT. ON PRN 2 L. O2. IV R.FA AND R. UPPER ARM BOTH SALINE LOCKED. PT. IS WEAK AND RESTING IN BED.
[2019-09-23 16:02] VITALS: BP 118/63
--- NOTE | 2019-09-23 16:56 | NUR ---
FAXED CLINICAL UPDATE TO [facility] RECEIVED CONFIRMATION AND LEFT MSG WITH INTAKE. DP TO FOLLOW.
[2019-09-23 19:25] VITALS: BP 119/57
[2019-09-24 04:45] VITALS: BP 104/57
--- NOTE | 2019-09-24 05:35 | NUR ---
Pt has had uneventful night. Has slept soundly unless awakened for meds. Urine output per coronado adequate.
[2019-09-24 07:58] VITALS: BP 115/52
[2019-09-24 12:39] LABS: PROTIME 41.1 Seconds (9.3-11.4)
--- NOTE | 2019-09-24 13:48 | NUR ---
CASE DISCUSSED WITH DR ROQUE AND HE SAYS PT WILL NEED TOTAL OF 10 DAYS OF IV ABX THEN HOME WITH HH SERVICES.
[2019-09-24 20:11] VITALS: BP 125/65
--- NOTE | 2019-09-24 20:23 | NUR ---
PT CARE ASSUMED AT 0700. A&Ox4. PT. NEEDS 10 IV ABX TREATMENT BEFORE HE CAN DISCHARGE TO HOME WITH HOME HEALTH. BED SIDE BATH GIVEN. NO PAIN. IV FLUSHES WELL AND IS INTACT WITH NO REDNESS OR SWELLING. PT SITS AT BEDSITE FOR ALL MEALS. PT SAT IN CHAIR FOR 3 HOURS TODAY. PT IS VERY TIRED FROM THIS AND RESTING NOW. PT CALL LIGHT IN REACH. BED LOCKED. BED ALARM ON AND IN LOW POSITION.
--- NOTE | 2019-09-25 03:42 | NUR ---
ASSESSMENT; PT REMAIN ALERT AND ORIENT TIMES THREE. PT VERY SLEEPY, DROWSY. EASY TO AROUSE. APPEARS DEPRESSED. ENCOURAGED TO CHANGE POSITIONS IN BED TO AVOID SKIN BREAK DOWN. DENIES PAIN, SOB AND N/V. MARIO PATENT WITH DARK YELLOW OUTPUT. NO BM THIS SHIFT. AT TIMES PT IS SLOW TORESPOND. BOTH IV ON RIGHT ARM INTACT. SLOW PROGRESS TOWARDS DC GOALS, WILL CONTINUE TO MONITOR.
[2019-09-25 04:24] VITALS: BP 104/53
[2019-09-25 06:25] LABS: INR 3.6; PROTIME 37.5 Seconds (9.3-11.4)
[2019-09-25 07:48] VITALS: BP 107/63
[2019-09-25 09:42] VITALS: BP 118/55
--- NOTE | 2019-09-25 10:31 | NUR ---
PT DISCHARGING TODAY TO HOME WITH [facility] FAXED DC ORDERS/SUMMARY SPOKE WITH JAYLA IN INTAKE SHE RECEIVED DC ORDERS AND WILL NOTIFY PT TIME OF VISITS.
[2019-09-25 12:16] VITALS: BP 106/58
[2019-09-25 16:02] VITALS: BP 118/55
--- NOTE | 2019-09-25 18:12 | NUR ---
PT CARE ASSUMED AT 0700. A&Ox4. PT CONCERNED ABOUT DISCHARGE AND VOICED THAT HE IS WORRIED HIS CANNOT TAKE CARE OF HIM. HE HAS MENTIONED THAT HE WANTS TO TRY AND SEE HOW HOME HEALTH GOES AND WILL POSSIBLY TRANSFER TO SKILLED FROM HOME. PT. HAS MENTIONED THAT HE IS DEPRESSED BUT NOT SUICIDAL. PT. RECEIVED HIS LAST IV ANTIBIOTIC DOSE. PT. DISCHARGED WITH AND TWO CHILDREN. IV REMOVED. LEFT FACILITY IN WHEELCHAIR.
== END 2019-09-25 17:00 | disposition home health service (06) | DRG 699 ==
LOC: 4S 16:55 → ENTRNSPT 09-25 16:17 → 4S 09-25 17:00
PROVIDERS: Internal Medicine Geriatric Medicine; ADMIT Internal Medicine
DX: T83.511A Infection and inflammatory reaction due to indwelling urethral catheter, initial encounter (principal); I82.509 Chronic embolism and thrombosis of unspecified deep veins of unspecified lower extremity; M51.06 Intervertebral disc disorders with myelopathy, lumbar region; G82.20 Paraplegia, unspecified; N39.0 Urinary tract infection, site not specified; I10 Essential (primary) hypertension; E66.01 Morbid (severe) obesity due to excess calories; G89.29 Other chronic pain; M54.5 Low back pain; R33.9 Retention of urine, unspecified; M48.061 Spinal stenosis, lumbar region without neurogenic claudication; M17.12 Unilateral primary osteoarthritis, left knee; Z79.01 Long term (current) use of anticoagulants; Z68.35 Body mass index [BMI] 35.0-35.9, adult; Z95.828 Presence of other vascular implants and grafts; Z87.442 Personal history of urinary calculi; Z90.49 Acquired absence of other specified parts of digestive tract; Z88.6 Allergy status to analgesic agent; Z88.7 Allergy status to serum and vaccine
CPT/HCPCS: 10102

== ENCOUNTER 2020-03-10 11:29 | Inpatient (IN) | payer OTHER, MEDICARE ==
[~2020-03-10] VITALS: Ht 152.4 cm; Wt 121.4 kg
[2020-03-10] VITALS (34 sets, daily range): BP systolic 102–142; BP diastolic 47–118
--- NOTE | ~2020-03-10 | EMS ---
[address] [address] EMS Patient Care Report Name: brian marin Room #: PRE M.R.#: [id number] Admission: Attend Phys: Discharge: Date of : 35 Report #: [id number] THIS REPORT FOR: //name// Report Transmitted: 03/10/2020 11:22 EMS Care Summary [facility] MED-ACT Incident [id number] @ 03/10/2020 10:44 Incident Location [address] [place] [address] Patient BRIAN MARIN Male, 84 Years 1935 Patient Address [address] [place] [address] Patient History Urinary Tract Infection (UTI),Anxiety, Patient Allergies Morphine,Tetanus Toxoid Vaccine, Chief Complaint " He's just not himself." Disposition Transported No Lights/[place] Reason Unconscious/Fainting Transported To [facility] Narrative EMS made contact with 1 male pt sitting on his bed in no apparent distress. Home health nurse reported that the pt has had a general decline over the last day. Home health reported that the pt was usually able to help with transfers, answer questions and carry on a conversation without issue and he was currently having trouble with all of those tasks. Home health reported that the pt's coronado catheter had been changed Pt was able to deny CP, RAMOS, abdominal pain or [address] [address] EMS Patient Care Report Name: brian marin Room #: PRE Mery.#: [id number] Admission: Attend Phys: Discharge: Date of : 35 Report #: [id number] penile pain. Pt reported that he was intermittently having some SOA. Pt was moving adequate air but had some diminished lower lobes and audible rhonchi. Pt family reported that the pt had frequent UTIs because of his coronado. Pt voiced no further complaints. Initial Vitals @10:57P: 135,SpO2: 96,MD Suspected: false @10:52P: 135,R: 34,BP: 140/97,Pain: 0/10,Temp: 97.6F,SpO2: 97, @11:14P: 134,R: 41,BP: 139/76,GCS: 15,SpO2: 96,Revised Trauma: 11, Assessments @10:54MENTAL:Person Oriented,Place Oriented,Event Oriented,SKIN:HEENT:Neck/Airway: No Abnormalities,LUNG SOUNDS:General: No Abnormalities,ABDOMEN:General: No Abnormalities,PELVIS//GI:Pelvis GUOther,EXTREMITIES:Right Leg: Other,Left Leg: Other,Left Arm: No Abnormalities,Right Arm: No Abnormalities,PULSE:NEURO:No Abnormalities, Impression Urinary Tract Infection (UTI) Procedures @10:5712-Lead ECGResponse: UnchangedSucceeded@11:03Oxygen FlowRate: 2 Device: CO2 Nasal Cannula Response: ImprovedSucceeded Timeline 10:43,Call Received 10:43,Psap Call 10:44,Dispatched 10:45,En Route 10:49,On Scene 10:52,At Patient 10:52,BP: 140/97 M,PULSE: 135,RR: 34 R,SPO2: 97 Ox,ETCO2: ,BG: ,PAIN: 0,GCS: , 10:57,12-Lead ECG,Response: UnchangedSucceeded, 10:57,BP: / M,PULSE: 135,RR: R,SPO2: 96 Ox,ETCO2: ,BG: ,PAIN: ,GCS: , 11:03,Oxygen FlowRate: 2 Device: CO2 Nasal Cannula Response: ImprovedSucceeded, 11:13,Depart Scene 11:14,BP: 139/76 M,PULSE: 134,RR: 41 R,SPO2: 96 Ox,ETCO2: ,BG: ,PAIN: ,GCS: 15, 11:28,At Destination 11:49,Call Closed Disclaimer v1.1 Copyright 2020 [employer] This EMS Care Summary contains data elements from the applicable legal record (which may be displayed differently). It is designed to provide pertinent information for the following purposes: continuity of care, clinical quality, and state data reporting. The complete legal record is available to ED staff [address] [address] EMS Patient Care Report Name: brian marin Room #: PRE M.R.#: [id number] Admission: Attend Phys: Discharge: Date of : 35 Report #: [id number] and administrators of the receiving hospital in ES's Patient Tracker. All data is provided "as is."
[~2020-03-10 11:29] MED LIST changes: +AUGMENTIN 875-1 EACH PO; +ZOLOFT 50 MG TA50 M1 PO
[2020-03-10 12:02] LABS: HEMATOCRIT 53.4 % (42.0-52.0); HEMOGLOBIN 17.9 gm/dL (14.0-18.0); MCH 30.7 pg (26.0-34.0); MCHC 33.5 g/dL (28.0-37.0); MCV 91.7 fL (80.0-100.0); PLATELET COUNT 238 thou/uL (150-400); RBC 5.83 mil/uL (4.50-6.00); RDW 14.9 % (10.5-14.5)
[2020-03-10 12:07] LABS: ANION GAP 11 mmol/L (7-16); BUN 39 mg/dL (7-18); CALCIUM 8.8 mg/dL (8.5-10.1); CHLORIDE 96 mmol/L (98-107); CO2 22 mmol/L (21-32); GLUCOSE 228 mg/dL (74-106); SODIUM 129 mmol/L (136-145)
[2020-03-10 12:08] LABS: POTASSIUM 5.2 mmol/L (3.5-5.1)
[2020-03-10 12:17] LABS: ALBUMIN 3.1 g/dL (3.4-5.0); SGOT 32 U/L (15-37); SGPT 22 U/L (30-65); TOTAL BILIRUBIN 1.3 mg/dL (<0.1-1.0); TOTAL PROTEIN 7.3 g/dL (6.4-8.2); TROPONIN-I <0.06 ng/mL (<0.06)
[2020-03-10 12:24] LABS: BE(vivo) -3.7 mmol/L (-2 to +3); HCO3 18.8 mmol/L (22.0-26.0); PCO2 28.9 mmHg (35.0-45.0); PO2 74.3 mmHg (80.0-100.0); pH 7.432 (7.360-7.450); sO2 95.5 % (92.0-98.0)
[2020-03-10 12:43] LABS: URINE GLUCOSE-RANDOM* NEGATIVE (Negative); URINE KETONES 1+ (Negative); URINE PROTEIN (DIPSTICK) 3+ (Negative); URINE SPECIFIC GRAVITY 1.015 (1.005-1.035)
[2020-03-10 12:44] LABS: URINE BILIRUBIN NEGATIVE (Negative); URINE BLOOD 3+ (Negative); URINE CLARITY TURBID; URINE COLOR YELLOW; URINE LEUKOCYTES-REFLEX 3+ (Negative); URINE NITRITE-REFLEX POSITIVE (Negative); URINE UROBILINOGEN 0.2 E.U./dl (0.2-1.0)
[2020-03-10 12:46] LABS: INR 1.9; PROTIME 19.1 Seconds (9.3-11.4)
[2020-03-10 12:51] LABS: ABSOLUTE NEUTROPHILS 21.4 thou/uL (1.4-8.2); PLATELET ESTIMATE NORMAL
[2020-03-10 12:56] LABS: CRYSTALS None Seen /LPF (None Seen); SQUAMOUS None Seen /LPF (0-3); URINE RBC >20 Many /HPF (0-2); URINE WBC-REFLEX >25 Many /HPF (0-5)
[2020-03-10 12:57] LABS: BACTERIA-REFLEX >30 Many /HPF (None Seen); CASTS None Seen /LPF (None Seen)
[2020-03-10 14:33] LABS: TSH 1.122 uIU/mL (0.358-3.740)
[2020-03-10 15:34] LABS: MAGNESIUM 1.8 mg/dL (1.8-2.4)
--- NOTE | 2020-03-10 18:29 | NUR ---
PT ARRIVED TO ICU FROM ED AT 1547. PT SOA, O2 APPLIED VIA NC AT 2L/MIN. PT GENERAL SKIN APPEARANCE IS DUSKY/CYANOTIC, COOL TO THE TOUCH. PTS FEET ARE A PURPLISH COLOR, COOL TO THE TOUCH, EDEMATUS, +2 PEDAL PULSES. PT CONFUSED AND HAS DIFFICULTY SPEAKING DUE TO SOA. O2 SATURATIONS HAVE BEEN ABOVE 95% SINCE I TOOK OVER CARE. PICC LINE PLACED AT BEDSIDE BY IV ACCESS TEAM, CONSENT OBTAINED FROM DAWSON VIA PHONE, WITNESSED BY ARACELIS MULLER RN. PTS PENIS IS EDEMATUS WITH SMALL AMOUNT OF PURULENT DISCHARGE FROM URETHRAL OPENING. COVID-19 RESULT PENDING. PT PROGRESSING TOWARDS POC. WILL CONTINUE TO MONITOR. PT AND UPDATED AND EDUCATED. NO BM DURING MY CARE.
--- NOTE | 2020-03-10 20:07 | NUR ---
CONSULTED TO PLACE A PICC FOR A PATIENT NEEDING ACCESS FOR SEPSIS. DISCUSSED LINE PLACEMENT WITH THE PATIENT AND HE VERBALIZED UNDERSTANDING. THE RIGHT BASILIC WAS WIDLEY PATENT. A #5F TRIPLE LUMEN POWER PICC WAS PLACED AFTER A BEDSIDE TIMEOUT WAS COMPLETED. LINE WAS TRIMMED TO 45CM AND ADVANCED WITHOUT DIFFICULTY. A STAT CHEST XRAY CONFIRMED LINE IN GOOD POSITION
[2020-03-10 20:21] LABS: BE(vivo) -4.4 mmol/L (-2 to +3); PCO2 27.3 mmHg (35.0-45.0); PO2 101.7 mmHg (80.0-100.0); pH 7.437 (7.360-7.450); sO2 97.9 % (92.0-98.0)
[2020-03-10 21:23] LABS: CALCIUM 7.8 mg/dL (8.5-10.1); CREATININE 1.8 mg/dL (0.7-1.3); POTASSIUM 4.5 mmol/L (3.5-5.1)
[2020-03-11] VITALS (33 sets, daily range): BP systolic 94–135; BP diastolic 36–98
[2020-03-11 01:08] LABS: GLYCOHEMOGLOBIN (HGB A1C) 6.8 % (4.8-5.6)
--- NOTE | 2020-03-11 01:17 | NUR ---
ASSUMED CARE OF PATIENT AT 1900. COVID RESULTS NEGATIVE PER LAB, HOOP PUNCH AND COILER OPERATOR HELPER NOTIFIED WELL KAMALJIT STEWART. PATIENT IS FEBRILE WITH UNSTABLE LABS AND VITALS, REPEAT COVID TEST SCHEDULED FOR AM. PATIENT NOT VERY TALKATIVE, VERY DIFFICULT TO DETERMINE PAIN OR OTHER SYMPTOMS. REMAINS ON CARDIZEM GTT AT THIS TIME. POC GOALS ESTABLISHED. NOT PROGRESSING AT THIS TIME.
[2020-03-11 05:28] LABS: HEMATOCRIT 42.5 % (42.0-52.0); MCH 30.6 pg (26.0-34.0); MCHC 33.5 g/dL (28.0-37.0); MCV 91.5 fL (80.0-100.0); RBC 4.64 mil/uL (4.50-6.00); RDW 14.9 % (10.5-14.5); WBC 15.6 thou/uL (4.0-11.0)
[2020-03-11 05:48] LABS: INR 1.9; PROTIME 19.1 Seconds (9.3-11.4)
[2020-03-11 06:00] LABS: CALCIUM 7.9 mg/dL (8.5-10.1); CREATININE 1.5 mg/dL (0.7-1.3); MAGNESIUM 1.7 mg/dL (1.8-2.4)
[2020-03-11 06:02] LABS: HEMOGLOBIN 14.2 gm/dL (14.0-18.0)
--- NOTE | 2020-03-11 08:00 | EKG ---
[facility] [place] [address] ELECTROCARDIOGRAM REPORT Name: brian patricio Room #: 238-P ADM IN M.R.#: [id number] Admission: 03/10/20 Attend Phys: Benjamin Clark Discharge: Date of : 35 Report #: [id number] THIS REPORT FOR: cc: Benitez Pace MD, Christopher B. 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
--- NOTE | 2020-03-11 08:19 | EKG ---
[facility] [place] [address] ELECTROCARDIOGRAM REPORT Name: brian patricio Room #: 238-P ADM IN M.R.#: [id number] Admission: 03/10/20 Attend Phys: Benjamin Clark Discharge: Date of : 35 Report #: [id number] THIS REPORT FOR: cc: Benitez Pace MD, Christopher B. MD Lundgren,Sandor Gasca MD [facility] ~ THIS REPORT FOR: //name// [facility] Test Date: 2020-03-11 Test Time: 07:39:46 Pat Name: brian patricio Department: Room: 238 P Gender: M Medical Assistant Ob Gyn: Benita MANNING : 1935 Requested By: Sandor Le Order Number: [id number] MD: Sandor Le Measurements Intervals [place] Rate: 84 P: [place]: QRS: -60 QRSD: 164 T: -39 QT: 441 QTc: 522 Interpretive Statements Atrial flutter Right bundle branch block Left anterior hemiblock Compared to ECG 09/15/2019 19:47:53 Heart rate has slowed Electronically Signed On 03-11-2020 8:17:01 CDT by Sandor Le [email or web address] <ELECTRONICALLY SIGNED> By: Sandor Le MD, [facility] 03/11/20 0817 [id number] 0739 Sandor Le MD, [facility] /EPI
--- NOTE | 2020-03-11 10:41 | NUR ---
ASSESSMENT: CM REVIEWED CHART AND SPOKE WITH ATTENDING. PT IS IN ENHANCED ISOLATION TO RULE OUT COVID 19. PT WAS ADMITTED DUE TO INCREASED WEAKNESS/SOB AND WAS FEBRILE IN ER. PT HAS LOW GRADE FEVER THIS AM. CM SPOKE WITH PTS DAWSON. PT LIVES at home w in A HOUSE. SHE REPORTS PT IS WHEELCHAIR BOUND AND THEY HAVE A LIFT DEVICE IN THE GARAGE WELL THE HOME. PT DOES BED BATHS. PT IS CURRENTLY IN SERVICES WITH [facility] (RN) AND ALSO HAS SERVICES THROUGH [facility] FOR 2HRS/DAY TO ASSIST THEM. PT HAS A CHRONIC MARIO CATHETER THAT HH RN HELPS MANAGE. PTS BEDROOM IS ON THE MAIN LEVEL. PT IS CURRENTLY ON 2 L OXYGEN BUT DOES NOT HAVE IT ARRANGED AT HOME. CM SPOKE WITH [facility] TO NOTIFY THEM OF ADMISSION AND THEY REPORT PT HAS RECENTLY BEEN DECLINING AND THEY HAVE INTRODUCED THE TOPIC OF HOSPICE TO THE FAMILY BUT THEY ARE RELUCATANT. CM FAXED [facility] UPDATED CLINICAL. PT IS CURRENTLY ON IV CARDIZEM DUE TO A FLUTTER WITH RVR AND RATES ARE CONTROLLED. PT IS ALSO ON IV ANBX. PTS FIRST COVID TEST TEST WAS NEGATIVE AND AWAITING RESULTS OF SECOND TEST. PT WILL ALSO NEED PT/OT ONCE SECOND TEST IS BACK AND PT IS OUT OF ICU. CM WILL CONTINUE TO FOLLOW TO ASSIST NEEDED.
--- NOTE | 2020-03-11 11:19 | NUR ---
Nurse talked with patients and updated her on plan of care and patient status. She denied further questions. Nurse talked with patients son a few minutes ago, updated him on plan of care and covid testing policy as he inquired. He denied further questions. Ict Analyst rounded, oral medications ordered, nurse did inform him of patient npo status at this time. Nurse also updated him on gtt rate and blood pressure and heart rate. Nurse to continue current treatments until speech therapy performs swallow evaluation. Then nurse can provide oral medications if he is cleared. Nurse to continue to monitor patient status.
--- NOTE | 2020-03-11 11:27 | NUR ---
1125- lab called RN to report covid negative result. This is his second negative result. Nurse called Zuleima Mckeon for clarification of isolation need since two results were negative.
--- NOTE | 2020-03-11 12:37 | NUR ---
1215- NURSE UPDATED PATIENT ON PLAN OF CARE AND CURRENT ILLNESS. HIS QUESTIONS WERE ANSWERED. NURSE REMINDED HIM THAT HE HAD A SPEECH EVALUATION AND POTENTIALLY SECONDARY TO HIS INFECTION, HE IS IN A WEAKENED STATE AND FAILED HIS SWALLOW EVALUATION. NURSE ALSO EXPLAINED WHAT THAT MEANT. PATIENT TO MOVE TO CCU. NURSE WILL CALL FAMILY.
--- NOTE | 2020-03-11 12:37 | NUR ---
1200- NURSE TALKED WITH DR. SHANNAN BROTHERS WHO EXPRESSED PATIENT MAY COME OUT OF COVID ISOLATION.
--- NOTE | 2020-03-11 13:20 | NUR ---
1318- NURSE CALLED PATIENTS SON. NO ANSWER 1319- NURSE CALLED PATIENTS . UPDATED HER ON COVID TESTING AND CHANGE OF ROOM. NURSE PROVIDED HER WITH THE ROOM NUMBER AND THE TELEPHONE NUMBER TO CCU. PATIENT TO TRANSFER OUT OF ICU SHORTLY.
--- NOTE | 2020-03-11 14:32 | NUR ---
1405- Patient transfered to room 201. Nurse had called report earlier. Nurse notified of patient arrival. She came into the room. Pt was provided with his call light. He denied needs. Nurse varified his cardiac rhythm was present and stable on the director of cardiac cath lab.
--- NOTE | 2020-03-11 15:48 | 2DMMODE ---
[facility] [place] [address] 2 D/M-MODE ECHOCARDIOGRAM Name: ABIOLA MARIN Room #: 201-P ADM IN M.R.#: [id number] Admission: 03/10/20 Attend Phys: Benjamin Clark Discharge: Date of : 35 Report #: [id number] THIS REPORT FOR: cc: Benitez Pace MD, Christopher B. MD Lundgren, Craig H. MD [facility] ~ APPROVED REPORT Study performed: 03/11/2020 13:27:47 EXAM: Comprehensive 2D, Doppler, and color-flow Echocardiogram Patient Location: ICU Room #: 238 Status: routine BSA: 2.43 HR: 73 bpm BP: 112/58 mmHg Rhythm: Atrial Flutter Other Information Study Quality: Fair Technically limited study due to body habitus, lung disease, inability to position patient. Indications COPD Dyspnea Hypertension/HDD Atrial flutter 2D Dimensions IVSd: 10.26 (7-11mm) LVOT Diam: 19.25 (18-24mm) LVDd: 48.56 mm PWd: 10.46 (7-11mm) Ascending Ao: 34.90 (22-36mm) LVDs: 31.28 (25-40mm) Aortic Root: 36.78 mm Aortic Valve AoV Peak Ishan.: 1.22 m/s AO Peak Gr.: 5.97 mmHg LVOT Max P.85 mmHg LVOT Max V: 1.10 m/s AYAAN Vmax: 2.62 cm2 Pulmonary Valve [facility] [address] [place] [address] 2 D/M-MODE ECHOCARDIOGRAM Name: ABIOLA MARIN Room #: 201-P ADM IN M.R.#: [id number] Admission: 03/10/20 Attend Phys: Benjamin Avitia Discharge: Date of : 35 Report #: [id number] PV Peak Ishan.: 0.73 m/s PV Peak Gr.: 2.15 mmHg Tricuspid Valve TR Peak Ishan.: 2.52 m/s TR Peak Gr.: 25.35 mmHg PA Pressure: 25.00 mmHg Left Ventricle The left ventricle is normal size. There is normal LV segmental wall motion. There is normal left ventricular wall thickness. The left ventricular systolic function is normal. The left ventricular ejection fraction is within the normal range. LVEF is 60-65%. This study is not technically sufficient to allow evaluation of the LV diastolic function. Right Ventricle The right ventricle is normal size. The right ventricular systolic function is normal. Atria Left atrium is at the upper limits of normal. Right atrium is dilated. Aortic Valve The aortic valve is mildly sclerotic No aortic regurgitation is present. There is no aortic valvular stenosis. Mitral Valve The mitral valve is normal in structure. Trace to mild mitral regurgitation. No evidence of mitral valve stenosis. Tricuspid Valve The tricuspid valve is normal in structure. There is mild tricuspid regurgitation. Estimated pulmonary artery pressure of 30-35mmHg Pulmonic Valve The pulmonary valve is normal in structure. Trace pulmonic regurgitation. Great Vessels The aortic root is normal in size. The inferior vena cava is not well visualized. Pericardium There is no pericardial effusion. [facility] [address] [place] [address] 2 D/M-MODE ECHOCARDIOGRAM Name: MARINABIOLA Room #: 201-P ADM IN M.R.#: [id number] Admission: 03/10/20 Attend Phys: Benjamin Avitia Discharge: Date of : 35 Report #: [id number] <Conclusion> The left ventricular systolic function is normal. There is normal LV segmental wall motion. LVEF is 60-65%. The aortic valve is mildly sclerotic. No aortic regurgitation or stenosis The mitral valve is normal in structure. Trace to mild mitral regurgitation. There is mild tricuspid regurgitation. Estimated pulmonary artery pressure of 30-35mmHg There is no pericardial effusion. <ELECTRONICALLY SIGNED> By: Sandor Le MD, FACC 03/11/20 [id number] Sandor Le MD, FACC /INF
--- NOTE | 2020-03-11 18:16 | NUR ---
PT. ARRIVED TO UNIT AROUND 1400; PT. ALERT; RESTING ON BED; IV FLUIDS RUNNING; DURING ASSESSMENT PT. ALERT TO PERSON & PLACE; C/O PAIN OVER BLE; OFFERED PRN PAIN MEDICATION; REFUSED IT; NPO; SCHEDULED MEDICATION GIVEN LATE; PER REPORT NO AVAILABLE IN ICU; REFUSED TO TURN TO R. SIDE; ON CARDIZEM GTT; AFLUT ON HEART MONITOR; HR CONTROL; DR. TYSON ROUNDING AFTER 1800; OK TO STOP CARDIZEM; MEDICATION STOPPED; ASSESSMENT CHARGED; FOLLOWING POC; WILL PASS ON REPORT;
[2020-03-12 00:14] VITALS: BP 109/51
--- NOTE | 2020-03-12 00:50 | NUR ---
PATIENTS CARES WERE ASSUMED AT SHIFT CHANGE, PATIENT WAS ASSESSED AND MEDS WERE PASSED. PATIENT WAS TURNED FOR COMFORT. HOB UP 40DERGEES TO PROMOTE BETTER BREATHING. HOURLY ROUNDING WAS DONE. THE BED IS IN A LOW AND LOCKED POSITION. THE BED ALARM IS ON
[2020-03-12 03:45] VITALS: BP 110/52
--- NOTE | 2020-03-12 05:07 | NUR ---
SLEPT MOST OF SHIFT. STATES CANNOT SLEEP EXCEPT ON LEFT SIDE. REPOSITIONED AND SHIFT SIDE AND LEFT HIP EVERY TWO HOURS. WORKING ON GOALS AND PLAN OF CARE FOR NOC. PROGRESSING SLOWLY TOWARDS DISCHARGE GOALS. CONTINUE TO ASSES CLOSELY. REMAINS ORIENTED X2 TO SELF AND PLACE. FORGETFUL.
[2020-03-12 06:32] LABS: HEMATOCRIT 39.3 % (42.0-52.0); HEMOGLOBIN 13.3 gm/dL (14.0-18.0); MCH 31.1 pg (26.0-34.0); MCHC 33.8 g/dL (28.0-37.0); RBC 4.27 mil/uL (4.50-6.00); RDW 14.6 % (10.5-14.5); WBC 9.3 thou/uL (4.0-11.0)
[2020-03-12 06:47] LABS: CALCIUM 7.2 mg/dL (8.5-10.1); POTASSIUM 3.5 mmol/L (3.5-5.1)
[2020-03-12 07:25] VITALS: BP 129/64
--- NOTE | 2020-03-12 11:08 | NUR ---
FAXED REFERRAL TO [facility] SPOKE WITH ADM AND THEY WILL NOT HAVE A BED AVAILABLE TIL 03/26. FAXED REFERRAL TO [facility] SPOKE WITH BIANCA IN ADM SHE CAN ACCEPT DP TO FOLLOW.
[2020-03-12 11:20] VITALS: BP 135/81
--- NOTE | 2020-03-12 15:16 | NUR ---
SNF referrals sent to [facility] and [facility] per the dc medical planner. [facility] is the family's first choice and they are interested in going to snf with transition to [facility] private pay. Awaiting response from [facility] regarding being able to accept for both and bed availability. [facility] can accept if [facility] is not able. Updated son and he will discuss with the pt as well as pt's and all of their adult kids. No weekend dc anticipated. Will f/u with [facility] and family early next week to determine which facility to pursue.
[2020-03-12 15:55] VITALS: BP 155/83
--- NOTE | 2020-03-12 17:28 | NUR ---
08:00 RESUMED PT. CARE THIS AM. PT. MORE TALKATIVE AND COOPERATIVE. EXPLAINED WE NEED TO WRK ON HIS WHEEZING TODAY AND GET THAT RESWOLVED MUCH POSSIBLE. LINENS CHANGED. DENIES ANY CHEST PAIN REPORTS BACK LEG PAIN 05/31, ICE BAGS APPLIED PER HIS REQUEST AND REPOSITIONED. NO NAUSEA, NO VOMITING AT PRESEBNT. PICC LINE FLUSHES EASILY AND NO SIGN'S OF INFILTRATION AT PRESENT.
--- NOTE | 2020-03-12 17:30 | NUR ---
10;30 LASIX GIVEN PER MD, DIURSES IS STARTING AND LUNG SOUNDS ARE ALREADY IMPROVING. MARIO INTACT AND DRAINING LARGE AMOUNTS OF URINE WILL MONITOR. DENIES ANY CHEST PAIN.
--- NOTE | 2020-03-12 17:31 | NUR ---
FEED PT. SOME APPLESAUCE AT THIS TIME, REPOSITIONED IN BED, NEW ICE BAGS APPLIED TO BACK OF LEGS. DENIES ANY CHEST PAIN, LUNG SOUNDS ARE NO VERY CLEAR AND IMPROVED FROM THIS AM.
[2020-03-12 18:54] VITALS: BP 105/50
[2020-03-13] VITALS (8 sets, daily range): BP systolic 97–126; BP diastolic 49–78
[2020-03-13 06:37] LABS: INR 2.3; PROTIME 24.1 Seconds (9.3-11.4)
--- NOTE | 2020-03-13 08:03 | NUR ---
ASSUME CARE 1900. PT/VIRALS STABLE. DENIES ANY PAIN BUT LABORED BREATHING NOTED. PT SOB WITH ACTIVITY AAS LITTLE TALKING. Q2 TURNS DONE. AFLUTTER QWITH CONTROLLED HR NOTED. ASSESSMENT CHARTED. PROGRESSING WELL WITH POC. PLAN IS TO CONITNUE TREATING WITH ANTIBIOTICS AND MONITOR BREATHING ANDRESPIRATORY FUNCTION. WILL CONTIUE TO FOLLOW WITH POC
--- NOTE | 2020-03-13 17:59 | NUR ---
PT CARE ASSUMED 0700. ASSESSMENTS CHARTED. MEDICATION CHARTED. PT TURNED Q2. PT FED HIMSELF READILY. SHAVED HIMSELF. PERFORMED ORAL CARE HIMSELF.
--- NOTE | 2020-03-14 00:07 | NUR ---
PATIENT ASSESSED AND IS ALERT X 2-3.RESP EVEN AND UNLABORED.IS A FALL RISK. SKIN WARM AND DRY. 02 AT 2LNC. DENIES SOA. ANKLES SWOLLEN WITH 2+ EDEMA NOTED. TELE- SHOWS AFLUTTER, CONTROLLED. HR IS IRREGULAR. HAS A LOOSE COUGH NOTED. TURNED Q 2 HOURS AND PRN. REQUESTING A STRAW BUT IS ON A HONEY THICKED LIQUID DIET, HE GOT ANGRY AT RN AND SHOOK HIM FIST AT THE RN. MARIO WITH SEDIMENT NOTED. RIGHT UPPER ARM PICC THAT FLUSHES WELL. PAIN MED GIVEN FOR PAIN ON BACK AND LEGS. DID GET RELIEF FROM PAIN MED. REASSESSED THE PAIN AT THE TIME HE WAS TURNED. HE STATED"I BEEN HER FOR 3 WEEKS AND I WANT TO GO HOME". REMINS A FULL CODE. TAKES MEDICATION WELL CRUSHED AT TIMES AND IN APPLESAUSE. NOT ABLE TO CARE FOR PATIENT ANYMORE MIGHT HAVE TO GO TO SNF UNIT. CONT PLAN OF CARE. DENIES ANY NEEDS. WILL NOT HELP TO MOREMUCH ON HIS OWN.
[2020-03-14 04:14] VITALS: BP 107/47
[2020-03-14 05:51] LABS: INR 2.5; PROTIME 25.9 Seconds (9.3-11.4)
[2020-03-14 07:10] VITALS: BP 96/62
[2020-03-14 07:30] VITALS: BP 96/62
[2020-03-14 11:05] VITALS: BP 134/74
[2020-03-14 15:30] VITALS: BP 133/72
--- NOTE | 2020-03-14 16:43 | NUR ---
PT CARE ASSUMED AT 0700. ASSESSMENTS CHARTED. MEDICATION CHARTED. AO X 2, SELF, PLACE. Q2 TURNS, FAVORS LEFT SIDE. CONFUSED. TRANSFER TO [facility].
[2020-03-14 19:02] VITALS: BP 115/60
--- NOTE | 2020-03-15 00:42 | NUR ---
ASSUMED PT CARE AT 1900. PT TRANSFERRED FROM TODAY. A&O X3. REPEATEDLY STATES HE WANTS TO GO HOME. CALLS WHEN HE WANTS TO BE TURNED. MEDS CRUSHED WITH APPLESAUCE SITTING UP STRAIGHT. ATTEMPTING TO WEAN HIS O2 DOWN SINCE PT SAYS HE DOES NOT WEAR IT AT HOME. 2+ PITTING EDEMA IN BLE. ANTIBIOTIC INFUSING PER ORDER. FLAT AFFECT BUT COOPERATIVE WITH CARE. PT REQUIRED 3 UNITS OF INSULIN, PT WAS UPSET STATING HE DOESNT "HAVE A PROBLEM WITH MY SUGARS" CURRENTLY SLEEPING IN BED WITH CALL LIGHT IN REACH.
[2020-03-15 04:55] VITALS: BP 109/54
[2020-03-15 06:09] LABS: INR 2.6; PROTIME 26.8 Seconds (9.3-11.4)
[2020-03-15 08:00] VITALS: BP 100/47
[2020-03-15] MEDS ORDERED: AUGMENTIN 875-1 EACH PO (08:19)
[2020-03-15] MEDS ORDERED: FLOMAX0.4 MG PO (08:19)
[2020-03-15] MEDS ORDERED: BISOPROLOL FUMAR5 MG PO (08:20)
[2020-03-15] MEDS ORDERED: LACTULOSE20 GM/30 M PO (08:20)
[2020-03-15] MEDS ORDERED: AMARYL2 MG PO (08:20)
--- NOTE | 2020-03-15 12:42 | NUR ---
Spoke with RN and phys reports plan to dc. Noted from prev casemgt notation that plan for patient for skilled but awaiting [facility] decision. SP with J who reports they inicated on Sunday they were not accepting of patient. SP with candie Cisse with [facility] they were accepting. Sp with son who reports he was told no dc until Sunday. He needs to prepare family members that the plan would be [facility]. He questions if can still do ltc at [facility] or not. Unable to determine as their admissions team is not avail at [facility]. Son requests to dc tomorrow as he was told Sunday he needs to prepare family and needs to sp with [facility]. Contacted [facility] who is agreeable to hold dc updated son who was grateful.
--- NOTE | 2020-03-15 17:55 | NUR ---
AAOX3 GRUMPY AND IRRITABLE. TYLENOL FOR LEG PAIN. REPOSTIONED IN BED EVERY 2 HOURS. MARIO TO DD WITH CLEAR YELLO URINE OUTPUT. GOOD APPETITE - NEEDS ENCOURAGEMENT TO FEED SELF. UNABLE TO DISCHARGE TO [facility] FAMILY WAS NOT INFORMED THAT [facility] COULD NOT RECIEVE [facility]. WILL LIKELY BE DISCHARGED TOMORROW TO [facility].
[2020-03-15 19:40] VITALS: BP 127/94
--- NOTE | 2020-03-16 01:06 | NUR ---
ASSUMED PT CARE AT 1900. PT CALLS APPROPRIATELY TO BE REPOSITIONED. PT IS ABLE TO ASSIST WITH TURNS A LOT MORE THAN HE LEADS ON, HE NEEDS REMINDERS AND ENCOURAGEMENT THAT HE CAN HELP. PO PAIN MEDS GIVEN FOR PAIN IN LEGS/BACK. ANTIBIOTICS INFUSING PER ORDER. PT EXPRESSED THAT HE DOES NOT UNDERSTAND WHY HE IS ON THICKENED LIQUIDS, HE SAYS HE DOES NOT HAVE DIFFICULTY SWALLOWING AND NO TROUBLE TAKING PILLS. NON PRODUCTIVE COUGH. MARIO PATENT WITH GOOD OUTPUT. VSS. CURRENTLY RESTING IN BED WITH EYES CLOSED.
[2020-03-16 03:50] VITALS: BP 123/54
[2020-03-16 10:00] LABS: INR 2.8; PROTIME 28.4 Seconds (9.3-11.4)
[2020-03-16 15:59] VITALS: BP 101/62
--- NOTE | 2020-03-16 16:17 | NUR ---
SON HAD ASKED TO WHY [facility] WOULDN'T TAKE PT. CM CALLED THERE THIS AM AND THEY ASKED FOR UPDATED ST NOTES. THEY WERE FAXED. THEY REVIEWED AND INDICATED THAT THEY STILL AREN'T ABLE TO ACCEPT PT FOR SKILLED OR LTC BASED ON HEAVY CARE NEEDS. CM ATTEMPTED PT TO PT'S ON AND SPOUSE TO CONVEY INFO AND NOTIFY THEM OF DC [facility]. CM UNABLE TO REACH EITHER SON OR SPOUSE OF THIS NOTE.
--- NOTE | 2020-03-16 16:52 | NUR ---
PT DISCHARGING TODAY TO [facility] FAXED DC ORDERS/SUMMARY TO FACILITY SPOKE WITH BIANCA IN ADM SHE ARRANGED TRANSPORT BY [facility] FOR 1800 TODAY. NOTIFIED PT'S SON (ALICIA) OF DC AND TIME OF TRANSPORT. UNIT NOTIFIED AND CHART COPY PER US. RN TO CALL REPORT TO [phone].
--- NOTE | 2020-03-16 18:35 | NUR ---
PT ASSESSED AT START OF SHIFT. HAD VIDEO SWALLOW AND PROGRESSED TO NECTAR THICK LIQUIDS. NO C/O PAIN. TURNED Q2HRS. HAD LARGE INCONTINENT SOFT BM. LARGE AMT OF CLOUDY YELLOW URINE PER MARIO. RT UPPER ARM PICC LINE DC'D W/ TIP INTACT. PT TO RETIREMENT FACILITY PER CART AT THIS TIME. REPORT TO BE CALLED TO NURSE.
== END 2020-03-16 18:50 | DRG 871 ==
LOC: ER 11:29 → EROBS 13:40 → ICU 13:40 → 2N 13:40 → ICU 15:50 → 2N 03-11 13:09 → 4S 03-14 17:30
PROVIDERS: Internal Medicine; Nurse Practitioner Family; Physician Assistant; ADMIT Hospitalist
PROC: 05HY33Z Insertion of Infusion Device into Upper Vein, Percutaneous Approach (ICD-10-PCS; principal; 2020-03-10)
DX: A41.50 Gram-negative sepsis, unspecified (principal); N17.0 Acute kidney failure with tubular necrosis; G92 Toxic encephalopathy; N39.0 Urinary tract infection, site not specified; J84.9 Interstitial pulmonary disease, unspecified; D68.59 Other primary thrombophilia; E46 Unspecified protein-calorie malnutrition; I48.92 Unspecified atrial flutter; Z68.43 Body mass index [BMI] 50.0-59.9, adult; A41.52 Sepsis due to Pseudomonas; R65.20 Severe sepsis without septic shock; N18.3 Chronic kidney disease, stage 3 (moderate); E86.0 Dehydration; I48.0 Paroxysmal atrial fibrillation; J44.9 Chronic obstructive pulmonary disease, unspecified; G47.33 Obstructive sleep apnea (adult) (pediatric); R63.4 Abnormal weight loss; N40.0 Benign prostatic hyperplasia without lower urinary tract symptoms; Z20.828 Contact with and (suspected) exposure to other viral communicable diseases; E11.22 Type 2 diabetes mellitus with diabetic chronic kidney disease; Z87.442 Personal history of urinary calculi; Z86.718 Personal history of other venous thrombosis and embolism; Z90.49 Acquired absence of other specified parts of digestive tract; Z88.6 Allergy status to analgesic agent; Z88.7 Allergy status to serum and vaccine; Z87.891 Personal history of nicotine dependence; Z79.01 Long term (current) use of anticoagulants; Z79.899 Other long term (current) drug therapy
CPT/HCPCS: 10078; 10081; 10102; 27000